=== PATIENT | female | born 1950 | race Caucasian/White ===

== ENCOUNTER 2020-09-10 11:55 | Inpatient (IN) | payer MEDICARE, OTHER ==
[~2020-09-10] VITALS: Ht 157.5 cm; Wt 47.6 kg
--- NOTE | 2020-09-10 12:10 | NUR ---
pt. admitted to .quiet initially,then roomate a little unfriendly,pt. taken to dining . nurse discharge planner aware.lrg. bandaid rt. elbow area,wd consult ordered.to take photos.mrsa smear done.
[2020-09-10] MEDS ORDERED: MAGNESIUM HYDROXIDE 30 ML UDC PO PRN (12:30)
[2020-09-10] MEDS ORDERED: MAG HYDROX/AL HYDROX/SIMETH 30 ML UDC PO PRN (12:30)
[2020-09-10] MEDS ORDERED: BLOOD SUGAR DIAGNOSTIC 1 EACH STRIP IN ONE (12:30)
[2020-09-10] MEDS ORDERED: ACETAMINOPHEN 325 MG TABLET PO PRN (12:30)
[2020-09-10] MEDS ORDERED: BUPR300T52 PO (13:54)
[2020-09-10] MEDS ORDERED: OLAN20TA3 PO (13:54)
[2020-09-10] MEDS ORDERED: ALEN70TA3 PO (13:54)
[2020-09-10] MEDS ORDERED: OMEP20TA20 PO (13:54)
[2020-09-10] MEDS ORDERED: NAPH15DR47 OP (13:54)
[2020-09-10] MEDS ORDERED: DONE5TAB7 PO (13:54)
[2020-09-10] MEDS ORDERED: SPIR25TA6 PO (13:54)
[2020-09-10] MEDS ORDERED: DIPH25CA83 PO (13:54)
[2020-09-10] MEDS ORDERED: BROM2.5T15 PO (13:54)
[2020-09-10] MEDS ORDERED: FAMO-131 PO (13:54)
[2020-09-10] MEDS ORDERED: LORA10TA68 PO (13:54)
[2020-09-10] MEDS ORDERED: OMEP20TA5 PO (13:54)
[2020-09-10] MEDS ORDERED: LACT10SO3 PO (13:54)
[2020-09-10 16:00] VITALS: BP 114/59
--- NOTE | 2020-09-10 16:30 | NUR ---
questioned town she is in and seems a little confused.
--- NOTE | 2020-09-10 18:30 | NUR ---
photos taken of discolorations on arms as well as abrasions on rt. arm.
[2020-09-10] MEDS ORDERED: diphenhydrAMINE HCL 25 MG CAPSULE PO PRN (19:00)
[2020-09-10] MEDS: BROMOCRIPTINE MESYLATE (2.5MG) 2.5 MG TABLET PO SCH (21:55)
[2020-09-11 08:00] VITALS: BP_SYST 120; BP_SYST 133; BP_DIAS 78; BP_DIAS 82
[2020-09-11] MEDS: LACTULOSE 10 G/15 ML UDC (PYXIS) PO SCH ×2 (08:47→09:00)
[2020-09-11] MEDS: SPIRONOLACTONE 25 MG TABLET PO SCH ×2 (08:48→09:00)
[2020-09-11] MEDS: LORATADINE 10 MG TABLET PO SCH ×2 (08:48→09:00)
[2020-09-11] MEDS: PANTOPRAZOLE 40 MG TABLET.DR PO SCH ×2 (08:48→09:00)
[2020-09-11] MEDS ORDERED: FAMOTIDINE (20 MG) 20 MG TABLET PO SCH (09:00)
--- NOTE | 2020-09-11 11:15 | NUR ---
PT. REFUSED FOR LABS. EXPLAINED ON THE IMPORTANCE AND STILL REFUSING.
--- NOTE | 2020-09-11 14:25 | NUR ---
Substance Abuse Intervention: MERISSA conducted a substance abuse intervention with the pt due to her lapse in alcohol recently in the past 5 days. Addendum: 09/12/20 at 1134 by MERISSA DOUGLAS WRONG PT.
--- NOTE | 2020-09-11 15:41 | NUR ---
Personal CarerAssembly Machine Offbearer: Promise ([phone]) from [facility] called the SW and stated that [facility], Dr. Moya ([phone]), would like a call from the . MERISSA stated that she would let the MD know. Addendum: 09/12/20 at 1136 by MERISSA DOUGLAS [phone]
[2020-09-11 16:00] VITALS: BP 142/88
--- NOTE | 2020-09-11 16:34 | NUR ---
Initial Discharge Plan: Pt currently resides at her apartment located at [address], [address], [place] [address]; [phone]. Per pt, she would like to return. SW will work with the pt and the MD regarding appropriate discharge planning. SW will form a safe and proper discharge.
[2020-09-11 19:52] VITALS: BP 125/69
[2020-09-11 20:20] LABS: ALBUMIN 2.9 g/dL (3.4-5.0); BILIRUBIN,TOTAL 0.5 mg/dL (0.2-1.0); POTASSIUM 3.7 mmol/L (3.5-5.1); TOTAL PROTEIN, SERUM 6.2 g/dL (6.4-8.2)
[2020-09-11 20:21] LABS: CHOLESTEROL 109 mg/dL (<200); HDL CHOLESTEROL 23 mg/dL (40-60); LDL 77 mg/dL (0-99); TRIGLYCERIDES 57 mg/dL (30-150)
[2020-09-11] MEDS: BROMOCRIPTINE MESYLATE (2.5MG) 2.5 MG TABLET PO SCH (21:16)
[2020-09-11] MEDS: OLANZAPINE 10 MG TABLET PO SCH (21:17)
[2020-09-12 08:00] VITALS: BP 99/64
[2020-09-12] MEDS: LACTULOSE 10 G/15 ML UDC (PYXIS) PO SCH (08:24)
[2020-09-12] MEDS: LORATADINE 10 MG TABLET PO SCH (08:24)
[2020-09-12] MEDS: SPIRONOLACTONE 25 MG TABLET PO SCH (08:24)
[2020-09-12] MEDS: PANTOPRAZOLE 40 MG TABLET.DR PO SCH (08:24)
[2020-09-12] MEDS: BUPROPION XL 150 MG TAB.ER.24 PO SCH (08:24)
--- NOTE | 2020-09-12 09:00 | NUR ---
RN NOTE- PT REFUSING MEDS OPPOSITIONAL TO CARE THOUGH DIRECTABLE IRRITABLE AT TIMES DELUSIONAL CLAIMING SOMEONE HAD HER ARRESTED AND PUT HERE. PO INTAKE GOOD PACES ANXIOUS
--- NOTE | 2020-09-12 09:17 | NUR ---
WOUND CARE CONSULT: PT SEEN FOR RT ARM ABRASIONS WHICH ARE DRY, PRESENT ON ADMISSION. NO WOUND CARE NEEDED AT THIS TIME. CURRENT JOSE SCORE IS 22. WILL SEE PRN.
--- NOTE | 2020-09-12 11:28 | NUR ---
Commercial Real Estate AssistantManager Biostatistics: MERISSA called Promise ([phone]) from [facility] and left a voicemail stating that the SW would like to discuss the pt.
--- NOTE | 2020-09-12 11:40 | NUR ---
Solid Die CutterArtillery Officer: Promise ([phone]) from [facility], pts medical case manager, called the SW and stated that the pt has been evicted from her apartment and is technically homeless. SW stated that the discharge recommendation looks like the pt will be discharged to a SNF. SW stated that she will keep medical case manager updated.
[2020-09-12 16:00] VITALS: BP 117/56
[2020-09-12 20:09] VITALS: BP 129/72
[2020-09-12 20:38] VITALS: BP 129/72
[2020-09-12] MEDS: BROMOCRIPTINE MESYLATE (2.5MG) 2.5 MG TABLET PO SCH (21:26)
[2020-09-12] MEDS: OLANZAPINE 10 MG TABLET PO SCH (21:31)
[2020-09-13 08:00] VITALS: BP 102/59
[2020-09-13] MEDS: PANTOPRAZOLE 40 MG TABLET.DR PO SCH (09:00)
[2020-09-13] MEDS: LACTULOSE 10 G/15 ML UDC (PYXIS) PO SCH (09:00)
[2020-09-13] MEDS: BUPROPION XL 150 MG TAB.ER.24 PO SCH (09:00)
[2020-09-13] MEDS: SPIRONOLACTONE 25 MG TABLET PO SCH (09:00)
[2020-09-13] MEDS: LORATADINE 10 MG TABLET PO SCH (09:00)
[2020-09-13 16:00] VITALS: BP 106/48
[2020-09-13 20:00] VITALS: BP 136/71
[2020-09-13 20:06] VITALS: BP 136/71
--- NOTE | 2020-09-13 20:28 | NUR ---
RN NOTE PATIENT SEEN BY DR. JEFFRIES AT THIS TIME. NO NEW ORDER RECEIVED.
[2020-09-13] MEDS: OLANZAPINE 10 MG TABLET PO SCH (21:06)
[2020-09-13] MEDS: BROMOCRIPTINE MESYLATE (2.5MG) 2.5 MG TABLET PO SCH (21:07)
[2020-09-14 08:00] VITALS: BP 108/66
[2020-09-14] MEDS: PANTOPRAZOLE 40 MG TABLET.DR PO SCH (08:45)
[2020-09-14] MEDS: LORATADINE 10 MG TABLET PO SCH (08:45)
[2020-09-14] MEDS: LACTULOSE 10 G/15 ML UDC (PYXIS) PO SCH ×2 (08:45→09:00)
[2020-09-14] MEDS: BUPROPION XL 150 MG TAB.ER.24 PO SCH (08:45)
[2020-09-14] MEDS: SPIRONOLACTONE 25 MG TABLET PO SCH (08:45)
--- NOTE | 2020-09-14 10:36 | NUR ---
RN NOTE PATIENT [id number], HYPERVERBAL WITH DISORGANIZED THOUGHTS. SHE CONSTANTLY STATES THAT "LAURA OR [facility] MONGE IS HERE AND I CAN'T FIND HIM," OR "BALTA THAT BITCH LEFT ME HERE AND WILL PAY." PATIENT PRESENTS WITH PARANOIA R/T MEDICATION AND BELIEVES "BALTA" IS THE REASON WHY SHE HAS TO TAKE MEDS. AFTER EDUCATION OF MED PURPOSE AND REORIENTATION SHE ACCEPTED ALL A.M MEDS EXCEPT LACTULOSE. DENIES SI/HI, VISUAL OR AUDITORY HALLUCINATIONS. ENCOURAGED TO KEEP DOOR OPEN FOR SAFETY BUT CLOSES IT EACH TIME LEFT OPEN. WILL CONTINUE TO MONITOR FOR SAFETY AND BEHAVIORS.
[2020-09-14 16:00] VITALS: BP 119/65
[2020-09-14 20:05] VITALS: BP 127/47
[2020-09-14] MEDS: BROMOCRIPTINE MESYLATE (2.5MG) 2.5 MG TABLET PO SCH (21:55)
[2020-09-14] MEDS: OLANZAPINE 10 MG TABLET PO SCH (21:55)
[2020-09-15 08:00] VITALS: BP 124/67
[2020-09-15] MEDS: PANTOPRAZOLE 40 MG TABLET.DR PO SCH (09:01)
[2020-09-15] MEDS: LORAZEPAM 0.5 MG TABLET PO PRN (09:01)
[2020-09-15] MEDS: BUPROPION XL 150 MG TAB.ER.24 PO SCH (09:01)
[2020-09-15] MEDS: LORATADINE 10 MG TABLET PO SCH (09:01)
[2020-09-15] MEDS: LACTULOSE 10 G/15 ML UDC (PYXIS) PO SCH (09:02)
[2020-09-15] MEDS: ALENDRONATE 70 MG TABLET PO SCH (09:06)
[2020-09-15] MEDS: SPIRONOLACTONE 25 MG TABLET PO SCH (09:06)
[2020-09-15 16:00] VITALS: BP 111/89
--- NOTE | 2020-09-15 18:00 | NUR ---
RN NOTES PATIENT REMAINS ISOLATIVE INSIDE HER ROOM THE WHOLE DAY. CALM. COMPLIANT WITH ALL MEDICATIONS. ALL NEEDS MET AT THIS TIME. NO OTHER SIGNIFICANT CHANGE IN CONDITION.
[2020-09-15 20:43] VITALS: BP 100/62
[2020-09-15] MEDS: BROMOCRIPTINE MESYLATE (2.5MG) 2.5 MG TABLET PO SCH (21:12)
[2020-09-15] MEDS: OLANZAPINE 10 MG TABLET PO SCH (21:14)
[2020-09-15] MEDS: TEMAZEPAM 7.5 MG CAPSULE PO PRN (22:38)
[2020-09-16] MEDS: LORAZEPAM 0.5 MG TABLET PO PRN ×2 (00:28→13:52)
--- NOTE | 2020-09-16 06:19 | NUR ---
PT PACING IN HER ROOM MOST OF THE NIGHT, SLEPT FOR ABOUT 4 HOURS. ATIVAN PRN ADMINISTERED FOR INCREASED ANXIETY WITH MILD EFFECT. ALL NEEDS MET AT THIS TIME, PATIENT IN NO APPARENT DISTRESS. DISORGANIZED, CONSTANTLY ENTERING INTO OTHER PATIENT'S ROOMS, REDIRECTED FREQUENTLY. WILL CONTINUE MONITORING CLOSELY.
[2020-09-16 08:00] VITALS: BP 116/57
[2020-09-16] MEDS: LACTULOSE 10 G/15 ML UDC (PYXIS) PO SCH (08:12)
[2020-09-16] MEDS: LORATADINE 10 MG TABLET PO SCH (08:12)
[2020-09-16] MEDS: BUPROPION XL 150 MG TAB.ER.24 PO SCH (08:13)
[2020-09-16] MEDS: PANTOPRAZOLE 40 MG TABLET.DR PO SCH (08:13)
[2020-09-16] MEDS: SPIRONOLACTONE 25 MG TABLET PO SCH (08:13)
--- NOTE | 2020-09-16 12:59 | NUR ---
SNF Referral: MERISSA faxed a SNF referral to [facility] with attn to Renan to the fax number: [phone].
[2020-09-16 16:00] VITALS: BP 109/44
--- NOTE | 2020-09-16 16:28 | NUR ---
SNF Contact: Renan ([phone]) from [facility] contacted the SW and stated that the pt was accepted to their facility.
--- NOTE | 2020-09-16 16:28 | NUR ---
Mold BuilderMarketing Assistant Retail Division: Promise ([phone]) from [facility] and stated that she wanted the SW to fax the pts medication list to [phone]. SW faxed the medications to the fax number provided.
[2020-09-16] MEDS: BROMOCRIPTINE MESYLATE (2.5MG) 2.5 MG TABLET PO SCH (21:31)
[2020-09-16] MEDS: OLANZAPINE 10 MG TABLET PO SCH (21:31)
[2020-09-16] MEDS: TEMAZEPAM 7.5 MG CAPSULE PO PRN (21:32)
[2020-09-17 03:57] VITALS: BP 134/64
[2020-09-17 04:39] VITALS: BP 134/64
--- NOTE | 2020-09-17 06:23 | NUR ---
PT RESTING AT THIS TIME, SLEPT FOR ABOUT 8 HOURS. ALL NEEDS MET AT THIS TIME, PATIENT IN NO APPARENT DISTRESS. WILL CONTINUE MONITORING CLOSELY.
[2020-09-17 08:00] VITALS: BP 120/58
[2020-09-17] MEDS: LORATADINE 10 MG TABLET PO SCH (08:30)
[2020-09-17] MEDS: BUPROPION XL 150 MG TAB.ER.24 PO SCH (08:31)
[2020-09-17] MEDS: PANTOPRAZOLE 40 MG TABLET.DR PO SCH (08:31)
[2020-09-17] MEDS: LACTULOSE 10 G/15 ML UDC (PYXIS) PO SCH (08:31)
[2020-09-17] MEDS: SPIRONOLACTONE 25 MG TABLET PO SCH (08:31)
[2020-09-17 16:00] VITALS: BP 103/73
--- NOTE | 2020-09-17 18:15 | NUR ---
RN NOTE PATIENT SLEPT INTERMITTENTLY THIS SHIFT. NO ACUTE DISTRESS. SHE CONTINUES WITH DISORGANIZED THOUGHTS, CONFUSION AND DELUSIONS. SHE DENIES SI/HI, AUDITORY OR VISUAL HALLUCINATIONS. MED COMPLIANT. EASILY AGITATED AT TIMES WHEN REDIRECTED. NO PHYSICAL NOR VERBAL AGGRESSION NOTED.
[2020-09-17 20:00] VITALS: BP 147/73
[2020-09-17] MEDS: TEMAZEPAM 7.5 MG CAPSULE PO PRN (21:11)
[2020-09-17] MEDS: BROMOCRIPTINE MESYLATE (2.5MG) 2.5 MG TABLET PO SCH (21:11)
[2020-09-17] MEDS: OLANZAPINE 10 MG TABLET PO SCH (21:11)
[2020-09-18 08:00] VITALS: BP 90/58
[2020-09-18] MEDS: LACTULOSE 10 G/15 ML UDC (PYXIS) PO SCH (09:00)
[2020-09-18] MEDS: SPIRONOLACTONE 25 MG TABLET PO SCH (09:02)
[2020-09-18] MEDS: LORATADINE 10 MG TABLET PO SCH (09:02)
[2020-09-18] MEDS: BUPROPION XL 150 MG TAB.ER.24 PO SCH (09:02)
[2020-09-18] MEDS: PANTOPRAZOLE 40 MG TABLET.DR PO SCH (09:02)
[2020-09-18 16:00] VITALS: BP 135/75
[2020-09-18 20:39] VITALS: BP 125/53
[2020-09-18] MEDS: BROMOCRIPTINE MESYLATE (2.5MG) 2.5 MG TABLET PO SCH (21:06)
[2020-09-18] MEDS: OLANZAPINE 10 MG TABLET PO SCH (21:07)
[2020-09-18] MEDS: TEMAZEPAM 7.5 MG CAPSULE PO PRN (23:51)
[2020-09-19] MEDS: LACTULOSE 10 G/15 ML UDC (PYXIS) PO SCH (08:11)
[2020-09-19] MEDS: PANTOPRAZOLE 40 MG TABLET.DR PO SCH (08:12)
[2020-09-19] MEDS: SPIRONOLACTONE 25 MG TABLET PO SCH (08:12)
[2020-09-19] MEDS: LORATADINE 10 MG TABLET PO SCH (08:12)
[2020-09-19] MEDS: BUPROPION XL 150 MG TAB.ER.24 PO SCH (08:12)
[2020-09-19 09:38] VITALS: BP 106/52
--- NOTE | 2020-09-19 13:09 | NUR ---
SNF Contact: SW contacted Renan ([phone]) from [facility] and informed him that the pt will be discharge on Tuesday.
--- NOTE | 2020-09-19 13:11 | NUR ---
Refrigerator GlazierHospitality Coordinator: MERISSA contacted Promise ([phone]) from [facility] and left her a voicemail stating that the pt will be discharged to [facility] on Tuesday.
[2020-09-19 16:13] VITALS: BP 151/70
[2020-09-19 20:12] VITALS: BP 152/77
[2020-09-19] MEDS: BROMOCRIPTINE MESYLATE (2.5MG) 2.5 MG TABLET PO SCH (21:09)
[2020-09-19] MEDS: OLANZAPINE 10 MG TABLET PO SCH (21:09)
[2020-09-19] MEDS: TEMAZEPAM 7.5 MG CAPSULE PO PRN (22:12)
--- NOTE | 2020-09-19 22:13 | NUR ---
RN NOTES: [id number] PT. C/O UNABLE TO SLEEP ,RESTORIL 7.5 MG PO PRN GIVEN PER PT. REQUEST,WILL CONTINUE TO MONITOR.
--- NOTE | 2020-09-20 06:30 | NUR ---
RN NOTES: PT. RESTING WELL IN HER ROOM, CALM COOPERTIVE AT THIS TIME , DENIES ANY PAIN/ DISCOMFORT AT THIS TIME, NO ACUTE DISTRESS NOTED , ENDORSE TO AM NURSE OR CONTINUITY WITH CARE.
[2020-09-20 08:30] VITALS: BP 117/59
[2020-09-20] MEDS: BUPROPION XL 150 MG TAB.ER.24 PO SCH (08:38)
[2020-09-20] MEDS: LORATADINE 10 MG TABLET PO SCH (08:39)
[2020-09-20] MEDS: PANTOPRAZOLE 40 MG TABLET.DR PO SCH (08:39)
[2020-09-20] MEDS: SPIRONOLACTONE 25 MG TABLET PO SCH (08:39)
[2020-09-20] MEDS: LACTULOSE 10 G/15 ML UDC (PYXIS) PO SCH (08:39)
[2020-09-20 16:00] VITALS: BP 147/75
[2020-09-20 20:03] VITALS: BP 110/72
[2020-09-20] MEDS: BROMOCRIPTINE MESYLATE (2.5MG) 2.5 MG TABLET PO SCH (22:14)
[2020-09-20] MEDS: OLANZAPINE 10 MG TABLET PO SCH (22:14)
--- NOTE | 2020-09-21 04:00 | NUR ---
RN NOTES PATIENT NOTED LAYING IN ROOMMATES EMPTY BED. PATIENT REORIENTATED. PATIENT IN CALM MOOD. PATIENT IN NO ACUTE DISTRESS. SAFETY MEASURES ARE IN PLACE, BED IS LOCKED AND PLACED IN THE LOW POSITION, SIDE RAILS UP X 2. WILL CONTINUE TO MONITOR.
[2020-09-21 08:00] VITALS: BP 156/92
[2020-09-21] MEDS: PANTOPRAZOLE 40 MG TABLET.DR PO SCH (08:45)
[2020-09-21] MEDS: SPIRONOLACTONE 25 MG TABLET PO SCH (08:45)
[2020-09-21] MEDS: LORATADINE 10 MG TABLET PO SCH (08:46)
[2020-09-21] MEDS: BUPROPION XL 150 MG TAB.ER.24 PO SCH (08:46)
[2020-09-21] MEDS: LACTULOSE 10 G/15 ML UDC (PYXIS) PO SCH (08:47)
[2020-09-21 16:00] VITALS: BP 125/55
[2020-09-21] MEDS: OLANZAPINE 10 MG TABLET PO SCH (21:09)
[2020-09-21] MEDS: BROMOCRIPTINE MESYLATE (2.5MG) 2.5 MG TABLET PO SCH (21:09)
[2020-09-21 21:28] VITALS: BP 163/79
[2020-09-22 08:00] VITALS: BP 114/67
[2020-09-22] MEDS: ALENDRONATE 70 MG TABLET PO SCH (08:23)
[2020-09-22] MEDS: BUPROPION XL 150 MG TAB.ER.24 PO SCH (08:58)
[2020-09-22] MEDS: PANTOPRAZOLE 40 MG TABLET.DR PO SCH (08:58)
[2020-09-22] MEDS: LACTULOSE 10 G/15 ML UDC (PYXIS) PO SCH (08:58)
[2020-09-22] MEDS: LORATADINE 10 MG TABLET PO SCH (08:58)
[2020-09-22] MEDS: SPIRONOLACTONE 25 MG TABLET PO SCH (08:59)
--- NOTE | 2020-09-22 09:00 | NUR ---
RN NOTE- ALERT ORIENTED PERSON ONLY CONFUSED WANDERS UNIT MED COMPLIANT NO BEHAVIORAL ISSUES
[2020-09-22 16:00] VITALS: BP 130/53
--- NOTE | 2020-09-22 16:25 | NUR ---
Individual Therapy: SW met with pt. bedside to conduct individual therapy regarding Positive Coping Mechanisms. However, pt. is irritable, agitated, restless and SW unable to engage pt. in meaningful conversation. Patient is not ready for therapy at this time. SW will continue attempt to provide individual therapy.
[2020-09-22 20:30] VITALS: BP 161/81
[2020-09-22] MEDS: OLANZAPINE 10 MG TABLET PO SCH (21:52)
[2020-09-22] MEDS: BROMOCRIPTINE MESYLATE (2.5MG) 2.5 MG TABLET PO SCH (21:52)
[2020-09-23] MEDS: TEMAZEPAM 7.5 MG CAPSULE PO PRN (00:04)
--- NOTE | 2020-09-23 00:05 | NUR ---
RN NOTES: INSOMNIA PT.C/O UNABLE TO SLEEP,RESTORIL 7.5 MG PO PRN GIVEN PER PT. REQUEST,WILL CONTINUE TO MONITOR.
[2020-09-23 08:00] VITALS: BP 123/61
--- NOTE | 2020-09-23 08:43 | NUR ---
Discharge plan: Pt will be discharged to [facility] (SNF) located at [address] [place] [address]; . Pt will be transported via [facility] at 12pm. Pts counseling case manager, Promise ([phone]), was informed and accepted the placement. Upon discharge, the pt appears to be in a euthymic mood and presented with a calm affect. Pt denies having any suicidal or homicidal ideation and stated that he does not have any auditory or visual hallucinations. Pt appears to be alert and oriented x4 (time, place, self and situation). Pt appears to be well groomed and appropriately dressed. Pt will be under the care of her psychiatrist, Dr. Guzman, located at [address] [place] [address]; and her aids counselor, Dr. Daniol Fraser, located at [address], [place] [address]; . Pt signed the Choice of Vendor form and the multidisciplinary exit care form was done, printed, signed, and given to the patient. Addendum: 09/23/20 at 0950 by MARIUSZ CRAVEN Discharge Note: Pt will be discharged to [facility] (SNF) located at [address] [place] [address]; . Pt will be transported via [facility] #[id number] at 12pm. Pts counseling case manager, Promise ([phone]), was informed and accepted the placement. Upon discharge, the pt appears to be in a euthymic mood and presented with a calm affect. Pt denies having any suicidal or homicidal ideation and stated that he does not have any auditory or visual hallucinations. Pt appears to be alert and oriented x4 (time, place, self and situation). Pt appears to be well groomed and appropriately dressed. Pt will be under the care of her psychiatrist, Dr. Guzman, [place] [address] [place] [address]; and her aids counselor, Dr. Danilo Fraser, located at [address], [place] [address]; . Pt signed the Choice of Vendor form and the multidisciplinary exit care form was done, printed, signed, and given to the patient.
[2020-09-23] MEDS: LACTULOSE 10 G/15 ML UDC (PYXIS) PO SCH ×2 (09:00→09:06)
--- NOTE | 2020-09-23 09:00 | NUR ---
received pt. this am alert and oriented x1-2.skin warm and dry. vs stable.no acute distress.
[2020-09-23] MEDS: LORATADINE 10 MG TABLET PO SCH (09:05)
[2020-09-23] MEDS: PANTOPRAZOLE 40 MG TABLET.DR PO SCH (09:06)
[2020-09-23] MEDS: SPIRONOLACTONE 25 MG TABLET PO SCH (09:06)
[2020-09-23] MEDS: BUPROPION XL 150 MG TAB.ER.24 PO SCH (09:07)
--- NOTE | 2020-09-23 12:10 | NUR ---
received dc orders.plans for dc today.med compliant.photos taken.pt cooperative,all papers signed including belonging sheet.denies suicidal,homicidal ideation.report called to facility and report to drivers.taken via ambulance to facility.
== END 2020-09-23 12:10 | DRG 885 ==
LOC: GPS 11:55
PROVIDERS: ADMIT Psychiatry & Neurology Psychiatry; ATTEND Internal Medicine
DX: F25.9 Schizoaffective disorder, unspecified (principal); F29 Unspecified psychosis not due to a substance or known physiological condition; F32.9 Major depressive disorder, single episode, unspecified; F41.9 Anxiety disorder, unspecified; F03.90 Unspecified dementia, unspecified severity, without behavioral disturbance, psychotic disturbance, mood disturbance, and anxiety; M81.0 Age-related osteoporosis without current pathological fracture; K21.9 Gastro-esophageal reflux disease without esophagitis; Z73.6 Limitation of activities due to disability; M62.81 Muscle weakness (generalized); Z20.822 Contact with and (suspected) exposure to COVID-19
CPT/HCPCS: 36415; 80053-TC; 80061-TC; 82962-TC; 87081-TC; Q0163

== ENCOUNTER 2021-08-27 19:55 | Inpatient (IN) | payer MEDICARE, OTHER ==
[~2021-08-27] VITALS: Ht 154.9 cm; Wt 49.9 kg
[~2021-08-27 19:55] MED LIST: ALEN70TA3 PO; BROM2.5T15 PO; DIPH25CA83 PO; FAMO-131 PO; LACT10SO3 PO; LORA10TA68 PO; NAPH15DR47 OP; OMEP20TA20 PO; OMEP20TA5 PO; SPIR25TA6 PO
--- NOTE | 2021-08-27 20:20 | NUR ---
PT LYNDA FROM [facility] FOR ABNORMAL CHEST XRAY AND CT. PT A/O X1, CONNECTED TO MONITOR.
--- NOTE | 2021-08-27 20:21 | NUR ---
20G IV LINE ESTABLISHED AT [facility]. PATENT AND INCTACT. BLOOD AND CULTURES DRAWN AND SENT TO LAB.
--- NOTE | 2021-08-27 20:21 | NUR ---
EMT AT BEDSIDE FOR EKG
--- NOTE | 2021-08-27 20:36 | NUR ---
PT OUT TO CT.
[2021-08-27 20:42] LABS: BASOPHILS # (AUTO) 0.1 K/uL (0.0-0.2); BASOPHILS % (AUTO) 0.8 % (0.0-2.0); EOSINOPHILS % (AUTO) 2.6 % (0.0-6.0); HEMATOCRIT 38 % (33-45); HEMOGLOBIN 13.2 g/dL (11.5-14.8); LYMPHOCYTES # (AUTO) 1.6 K/uL (0.8-4.8); LYMPHOCYTES % (AUTO) 15.2 % (20.0-44.0); MEAN CORPUSCULAR HGB CONC 34 g/dl (31.0-36.0); MEAN CORPUSCULAR VOLUME 95 fL (82-100); MONOCYTES # (AUTO) 0.8 K/uL (0.1-1.30); MONOCYTES % (AUTO) 7.4 % (2.0-12.0); NEUTROPHILS # (AUTO) 7.7 K/uL (1.8-8.9); PLATELET COUNT (AUTO) 167 K/uL (150-450); RED BLOOD CELL COUNT(AUTO) 4.07 MIL/uL (4.0-5.2); WHITE BLOOD COUNT (AUTO) 10.5 K/uL (4.3-11.0)
[2021-08-27 20:48] LABS: BILIRUBIN,DIRECT 0.2 mg/dL (0.0-0.2); BILIRUBIN,TOTAL 0.6 mg/dL (0.2-1.0); CALCIUM, SERUM 8.6 mg/dL (8.5-10.1); CREATININE 1.3 mg/dL (0.6-1.3); POTASSIUM 3.9 mmol/L (3.5-5.1); TOTAL PROTEIN, SERUM 7.7 g/dL (6.4-8.2)
--- NOTE | 2021-08-27 20:55 | NUR ---
COVID ANTIGEN COLLECTED AND SENT TO LAB.
--- NOTE | 2021-08-27 21:53 | NUR ---
PT CURRENTLY WAITING FOR HOSPITAL BED
[2021-08-27] MEDS: BROMOCRIPTINE MESYLATE (2.5MG) 2.5 MG TABLET PO SCH (22:00)
[2021-08-27] MEDS ORDERED: MAG HYDROX/AL HYDROX/SIMETH 30 ML UDC PO PRN (22:00)
[2021-08-27] MEDS ORDERED: ONDANSETRON HCL/PF 4 MG/2 ML VIAL IVP PRN (22:00)
[2021-08-27] MEDS ORDERED: MAGNESIUM HYDROXIDE 30 ML UDC PO PRN (22:00)
[2021-08-27] MEDS ORDERED: ACETAMINOPHEN 325 MG TABLET PO PRN (22:00)
[2021-08-27] MEDS ORDERED: Z GUARD REMEDY 4 OZ OINT TP PRN (22:00)
--- NOTE | 2021-08-27 22:18 | NUR ---
REPORT GIVEN TO MOSES
[2021-08-27 22:50] VITALS: BP 132/68
--- NOTE | 2021-08-27 22:50 | NUR ---
PATIENT ARRIVED ON THE FLOOR FROM ER, AWAKE, A/O X2, CONFUSED, CONSTANTLY TALKING TO HERSELF. NO S/S OF DISTRESS NOTED. NO COMPLAIN OF PAIN. CALL LIGHT WITHIN REACH, INSTRUCTED. BED ALARM ON. BED IN LOWEST AND LOCKED POSITION. HOB ELEVATED.
[2021-08-27] MEDS: IV NS 0.9% 1,000 ML IV PRN (23:18)
--- NOTE | 2021-08-28 00:53 | NUR ---
parlodel med not available per charge nurse Altagracia.
[2021-08-28 06:50] LABS: BASOPHILS # (AUTO) 0.1 K/uL (0.0-0.2); BASOPHILS % (AUTO) 0.8 % (0.0-2.0); EOSINOPHILS % (AUTO) 4.8 % (0.0-6.0); HEMATOCRIT 35 % (33-45); LYMPHOCYTES # (AUTO) 1.3 K/uL (0.8-4.8); LYMPHOCYTES % (AUTO) 16.8 % (20.0-44.0); MEAN CORPUSCULAR HGB CONC 35 g/dl (31.0-36.0); MEAN CORPUSCULAR VOLUME 95 fL (82-100); MONOCYTES # (AUTO) 0.7 K/uL (0.1-1.30); MONOCYTES % (AUTO) 8.6 % (2.0-12.0); NEUTROPHILS # (AUTO) 5.4 K/uL (1.8-8.9); PLATELET COUNT (AUTO) 144 K/uL (150-450); RED BLOOD CELL COUNT(AUTO) 3.67 MIL/uL (4.0-5.2); WHITE BLOOD COUNT (AUTO) 7.8 K/uL (4.3-11.0)
--- NOTE | 2021-08-28 07:35 | NUR ---
MS OPENING NOTES PATIENT IN BED AWAKE, A/O X2, CONFUSED WITH H/O DEMENTIA. EQUAL CHEST EXPANSION DURING RESPIRATIONS WITH NO S/SX OF RESPIRATORY DISTRESS NOTED. NO COMPLAINT OF PAIN AT THIS TIME. R AC G#20 WITH NS RUNNING @ 75ML/HR. SAFETY MEASURES IN PLACE: CALL LIGHT WITHIN REACH BED ALARM ON. BED IN LOWEST AND LOCKED POSITION. HOB ELEVATED. WILL CONTINUE TO MONITOR PATIENT
[2021-08-28 07:42] LABS: CALCIUM, SERUM 8.1 mg/dL (8.5-10.1); CREATININE 1.2 mg/dL (0.6-1.3); MAGNESIUM 2.2 mg/dL (1.8-2.4); PHOSPHORUS 4.1 mg/dL (2.5-4.9); POTASSIUM 4.4 mmol/L (3.5-5.1)
[2021-08-28] MEDS: FAMOTIDINE (20 MG) 20 MG TABLET PO SCH (09:55)
[2021-08-28] MEDS: NAPHAZOLINE HCL/PHENIR MAL 15 ML BOTTLE EACHEYE SCH ×2 (09:55→17:41)
[2021-08-28] MEDS: LACTULOSE 10 G/15 ML UDC (PYXIS) PO SCH (09:55)
[2021-08-28] MEDS: LORATADINE 10 MG TABLET PO SCH (09:55)
[2021-08-28] MEDS: SPIRONOLACTONE 25 MG TABLET PO SCH (09:55)
--- NOTE | 2021-08-28 18:50 | NUR ---
MS CLOSING NOTES PATIENT AWAKE, NEAR THE NURSING STATION, A/O X1, HIGHLY FORGETFUL. EQUAL NO S/SX OF RESPIRATORY DISTRESS NOTED OR COMPLAINTS OF PAIN AT THIS TIME. R AC G#20 REMOVED, NEW IC ACCESS R FA G#18 INTACT AND PATENT. PATIENT NEEDS NEEDS FREQUENT REORIENTATION AND EDUCATION FOR SAFETY. CHARGE NURSE MADE AWARE. PATIENT IS TO BE NPO EXCEPT MEDS AFTER MIDNIGHT FOR CT PROCEDURE TOMORROW AM. TRIED CALLING DAPHNEY FLASHER ([employer] WORKER [facility]) FOR CONSENT BUT NO ANSWER. LEFT A VOICEMAIL. SAFETY MEASURES IN PLACE: CALL LIGHT WITHIN REACH BED ALARM ON. BED IN LOWEST AND LOCKED POSITION. HOB ELEVATED. WILL ENDORSE TO DATABASE ANALYST NURSE FOR KELLY
--- NOTE | 2021-08-28 19:15 | NUR ---
MS RN OPENING NOTES: RECEIVED PATIENT RESTING COMFORTABLY IN BED, AWAKE, A/O X2, CONFUSED. NO S/S OF DISTRESS NOTED. NO COMPLAIN OF PAIN. CALL LIGHT WITHIN REACH. BED IN LOWEST AND LOCKED POSITION. WITH 1:1 SITTER AT THE BEDSIDE FOR ELOPEMENT RISK. NPO POST MN EXCEPT MEDS, SITTER AWARE, AND PATIENT AWARE.
--- NOTE | 2021-08-28 20:41 | NUR ---
NO 1:1 SITTER AT THIS MOMENT PER CHARGE NURSE PADILLA.
[2021-08-28] MEDS: BROMOCRIPTINE MESYLATE (2.5MG) 2.5 MG TABLET PO SCH (21:49)
[2021-08-28 22:59] VITALS: BP 122/70
[2021-08-29] MEDS: IV NS 0.9% 1,000 ML IV PRN (03:21)
[2021-08-29] MEDS: ALENDRONATE 70 MG TABLET PO SCH (05:28)
[2021-08-29 06:21] LABS: BASOPHILS # (AUTO) 0.1 K/uL (0.0-0.2); BASOPHILS % (AUTO) 1.1 % (0.0-2.0); HEMATOCRIT 34 % (33-45); HEMOGLOBIN 11.4 g/dL (11.5-14.8); LYMPHOCYTES # (AUTO) 1.4 K/uL (0.8-4.8); LYMPHOCYTES % (AUTO) 18.8 % (20.0-44.0); MEAN CORPUSCULAR HGB CONC 34 g/dl (31.0-36.0); MEAN CORPUSCULAR VOLUME 96 fL (82-100); MONOCYTES # (AUTO) 0.6 K/uL (0.1-1.30); MONOCYTES % (AUTO) 8.7 % (2.0-12.0); NEUTROPHILS # (AUTO) 4.8 K/uL (1.8-8.9); NEUTROPHILS % (AUTO) 66.4 % (43.0-81.0); PLATELET COUNT (AUTO) 145 K/uL (150-450); RED BLOOD CELL COUNT(AUTO) 3.49 MIL/uL (4.0-5.2); WHITE BLOOD COUNT (AUTO) 7.2 K/uL (4.3-11.0)
[2021-08-29 06:45] LABS: ALBUMIN 2.5 g/dL (3.4-5.0); BILIRUBIN,TOTAL 0.4 mg/dL (0.2-1.0); CALCIUM, SERUM 7.8 mg/dL (8.5-10.1); CREATININE 1.2 mg/dL (0.6-1.3); MAGNESIUM 2.3 mg/dL (1.8-2.4); PHOSPHORUS 3.8 mg/dL (2.5-4.9); POTASSIUM 4.2 mmol/L (3.5-5.1); TOTAL PROTEIN, SERUM 6.4 g/dL (6.4-8.2)
--- NOTE | 2021-08-29 07:35 | NUR ---
MS OPENING NOTES PATIENT AWAKE IN BED, A/O X1, HIGHLY FORGETFUL. EQUAL CHEST EXPANSION ON RA DURING INSPIRATION AND EXPIRATION WITH NO S/SX OF RESPIRATORY DISTRESS NOTED. NO COMPLAINTS OF PAIN VERBALIZED AT THIS TIME. IV ACCESS R FA G#18 INTACT AND PATENT. PATIENT NEEDS FREQUENT REORIENTATION. UNABLE TO RESPOND APPROPRIATELY TO QUESTIONS. SAFETY MEASURES IN PLACE: CALL LIGHT WITHIN REACH BED ALARM ON. BED IN LOWEST AND LOCKED POSITION. HOB ELEVATED. WILL CONTINUE THE PLAN OF CARE
[2021-08-29 08:00] VITALS: BP 104/50
[2021-08-29 09:07] LABS: CANCER AG, 15-3 23.7 U/mL (0.0-25.0)
[2021-08-29] MEDS: FAMOTIDINE (20 MG) 20 MG TABLET PO SCH (09:19)
[2021-08-29] MEDS: LACTULOSE 10 G/15 ML UDC (PYXIS) PO SCH (09:19)
[2021-08-29] MEDS: LORATADINE 10 MG TABLET PO SCH (09:19)
[2021-08-29] MEDS: SPIRONOLACTONE 25 MG TABLET PO SCH (09:19)
[2021-08-29] MEDS: NAPHAZOLINE HCL/PHENIR MAL 15 ML BOTTLE EACHEYE SCH ×2 (09:19→17:00)
--- NOTE | 2021-08-29 10:00 | NUR ---
RN NOTES PATIENT HAS ORDER FOR CT OF CHEST, ABD, AND PELVIS WITH CONTRAST. PATIENT HAS H/O DEMENTIA AND CANNOT PROVIDE CONSENT. RESPONSIBLE GREEN PARTY (KIERA ABDI) HAS BEEN CALLED 3X FOR CONSENT BUT UNABLE TO REACH. ATTENDING DOCTOR, DR BEAUCHAMP WAS NOTIFIED AND HAS PROVIDED CONSENT FOR THE PATIENT TO HAVE THIS PROCEDURE PERFORMED.
--- NOTE | 2021-08-29 11:00 | NUR ---
RN NOTES PATIENT WAS TRANSFERRED OFF UNIT FOR CT PROCEDURE. TRANSPORTED VIA WHEELCHAIR ACCOMPANIED BY 2 TECHS.
[2021-08-29] MEDS ORDERED: IOHEXOL-300 100 ML VIAL IV ONE (11:10)
[2021-08-29] MEDS ORDERED: IV NS 0.9% 250 ML IV ONE (11:11)
--- NOTE | 2021-08-29 11:30 | NUR ---
RN NOTES CT COMPLETE. NO COMPLAINTS OR COMPLICATIONS NOTED. PATIENT IS SAFELY BACK IN ROOM.
--- NOTE | 2021-08-29 12:45 | NUR ---
RN NOTES PATIENT'S 2 SISTERS CAME TO HOSPITAL TO VISIT. PATIENT BECAME VERY UPSET AFTER SISTERS LEFT. PATIENT IS SITTING NEAR NURSES STATION FOR COMFORT AND CLOSE OBSERVATION. WILL CONTINUE TO MONITOR
[2021-08-29 16:00] VITALS: BP 119/67
[2021-08-29 18:32] LABS: IRON, SERUM 70 ug/dl (50-175)
[2021-08-29 18:44] LABS: FERRITIN 222 ng/mL (8-388)
[2021-08-29 18:45] LABS: TOTAL IRON BINDING CAPACITY 245 ug/dl (250-450)
--- NOTE | 2021-08-29 18:45 | NUR ---
MS CLOSING NOTES PATIENT AWAKE IN ROOM, HIGHLY FORGETFUL. NO S/SX OF RESPIRATORY DISTRESS NOTED. NO COMPLAINTS OF PAIN VERBALIZED AT THIS TIME. IV ACCESS R FA G#18 INTACT AND PATENT. PATIENT NEEDS FREQUENT REORIENTATION. UNABLE TO RESPOND APPROPRIATELY TO QUESTIONS BUT COOPERATIVE DURING CARE. ALL NEEDS MET DURING SHIFT. CT PERFORMED TODAY. SAFETY MEASURES IN PLACE: CALL LIGHT WITHIN REACH BED ALARM ON. BED IN LOWEST AND LOCKED POSITION. HOB ELEVATED. WILL ENDORSE TO THE ORCHARD PRUNER NURSE FOR KELLY
--- NOTE | 2021-08-29 19:30 | NUR ---
MS RN OPENING NOTES: RECEIVED PATIENT IN THE HALLWAY TALKING TO THE STAFFS, WALKING AROUND THE HALLWAY, CONFUSED. NO S/S OF DISTRESS NOTED. NO COMPLAIN OF PAIN. RE-ORIENTED THE PATIENT. PATIENT REQUIRES FREQUENT RE-ORIENTATIONS.
[2021-08-29 20:00] VITALS: BP 115/56
[2021-08-29] MEDS: BROMOCRIPTINE MESYLATE (2.5MG) 2.5 MG TABLET PO SCH (21:18)
[2021-08-30 06:41] LABS: BASOPHILS # (AUTO) 0.1 K/uL (0.0-0.2); BASOPHILS % (AUTO) 0.8 % (0.0-2.0); EOSINOPHILS % (AUTO) 4.6 % (0.0-6.0); HEMATOCRIT 34 % (33-45); HEMOGLOBIN 11.5 g/dL (11.5-14.8); LYMPHOCYTES # (AUTO) 1.4 K/uL (0.8-4.8); MEAN CORPUSCULAR HGB CONC 34 g/dl (31.0-36.0); MEAN CORPUSCULAR VOLUME 95 fL (82-100); MONOCYTES # (AUTO) 0.6 K/uL (0.1-1.30); MONOCYTES % (AUTO) 8.1 % (2.0-12.0); NEUTROPHILS # (AUTO) 4.8 K/uL (1.8-8.9); NEUTROPHILS % (AUTO) 67.5 % (43.0-81.0); PLATELET COUNT (AUTO) 153 K/uL (150-450); RED BLOOD CELL COUNT(AUTO) 3.55 MIL/uL (4.0-5.2); WHITE BLOOD COUNT (AUTO) 7.2 K/uL (4.3-11.0)
--- NOTE | 2021-08-30 07:20 | NUR ---
MS RN OPENING NOTES RECEIVED PATIENT AWAKE, WALKING IN ROOM. A/O X2 WITH CONFUSION. NO SIGNS OF ACUTE DISTRESS NOTED. ON ROOM AIR TOLERATING WELL. NO SOB NOTED. NO C/O PAIN OR DISCOMFORT. WITH IV ACCESS ON RFA #18G INTACT. SAFETY MEASURES IN PLACE. BED LOCKED AND IN LOWEST POSITION, SR UP X2, CALL LIGHT PLACED WITHIN EASY REACH. WILL CONTINUE TO MONITOR.
[2021-08-30 07:36] LABS: ALBUMIN 2.6 g/dL (3.4-5.0); BILIRUBIN,TOTAL 0.4 mg/dL (0.2-1.0); CREATININE 1.1 mg/dL (0.6-1.3); MAGNESIUM 2.2 mg/dL (1.8-2.4); PHOSPHORUS 3.5 mg/dL (2.5-4.9); POTASSIUM 4.3 mmol/L (3.5-5.1); TOTAL PROTEIN, SERUM 6.7 g/dL (6.4-8.2)
[2021-08-30] MEDS: FAMOTIDINE (20 MG) 20 MG TABLET PO SCH (08:18)
[2021-08-30] MEDS: LACTULOSE 10 G/15 ML UDC (PYXIS) PO SCH (08:18)
[2021-08-30] MEDS: SPIRONOLACTONE 25 MG TABLET PO SCH (08:18)
[2021-08-30] MEDS: LORATADINE 10 MG TABLET PO SCH (08:18)
[2021-08-30] MEDS: NAPHAZOLINE HCL/PHENIR MAL 15 ML BOTTLE EACHEYE SCH ×2 (08:20→16:10)
[2021-08-30 08:48] VITALS: BP 116/58
[2021-08-30 15:59] VITALS: BP 116/60
--- NOTE | 2021-08-30 17:45 | NUR ---
RN NOTES LEFT MESSAGE TO KIERA GLUING CREW LEADER REGARDING OBTAINING A CONSENT FOR CT GUIDED BIOPSY OF LUNG MASS. NO ANSWER. WILL ENDORSE ACCORDINGLY.
--- NOTE | 2021-08-30 18:56 | NUR ---
MS RN CLOSING NOTES PATIENT AWAKE, IN BED. A/O X2 WITH CONFUSION. NOTED TALKING TO SELF. NO SIGNS OF ACUTE DISTRESS NOTED. ON ROOM AIR TOLERATING WELL. NO SOB NOTED. NO C/O PAIN OR DISCOMFORT. NO IV ACCESS AT THIS TIME. PATIENT REFUSED REINSERTION AT THIS TIME, MD AWARE. SAFETY MEASURES IN PLACE. BED LOCKED AND IN LOWEST POSITION, SR UP X2, CALL LIGHT PLACED WITHIN EASY REACH. WILL ENDORSE TO NEXT SHIFT.
--- NOTE | 2021-08-30 19:35 | NUR ---
MS RN OPENING NOTES PATIENT AWAKE, IN BED. A/O X2 WITH CONFUSION. NOTED TALKING TO SELF. NO SIGNS OF ACUTE DISTRESS NOTED. ON ROOM AIR TOLERATING WELL. NO SOB NOTED. NO C/O PAIN OR DISCOMFORT. NO IV ACCESS AT THIS TIME. PATIENT REFUSED REINSERTION AT THIS TIME, MD AWARE. SAFETY MEASURES IN PLACE. BED LOCKED AND IN LOWEST POSITION, SR UP X2, CALL LIGHT PLACED WITHIN EASY REACH. WILL CONTINUE TO MONITOR.
[2021-08-30 20:00] VITALS: BP 129/70
[2021-08-30] MEDS: RIVASTIGMINE TARTRATE 1.5 MG CAPSULE PO SCH (22:30)
[2021-08-30] MEDS: BROMOCRIPTINE MESYLATE (2.5MG) 2.5 MG TABLET PO SCH (22:30)
[2021-08-30] MEDS: risperiDONE 0.25 MG TABLET PO SCH (22:30)
--- NOTE | 2021-08-30 23:06 | NUR ---
MS RN NOTES PT SEEN BY PSYCHIATRIST DR JEFFRIES WITH NEW ORDERS. CARRIED OUT . WILL CONTINUE TO MONITOR
--- NOTE | 2021-08-31 06:33 | NUR ---
MS RN CLOSING NOTES PATIENT AWAKE, IN BED. A/O X2 WITH CONFUSION. NOTED TALKING TO SELF. NO SIGNS OF ACUTE DISTRESS NOTED. ON ROOM AIR TOLERATING WELL. NO SOB NOTED. NO C/O PAIN OR DISCOMFORT. NO IV ACCESS AT THIS TIME. PATIENT REFUSED REINSERTION AT THIS TIME. PT KEEPS PULLING OUT IV. SAFETY MEASURES IN PLACE. BED LOCKED AND IN LOWEST POSITION, SR UP X2, CALL LIGHT PLACED WITHIN EASY REACH. PT TO HAVE CT GUIDED LUNG BIOPSY CONSENT WAS NOT ABLE TO BE OBTAINED. UNABLE TO REACH RESPONSIBLE GREEN PARTY. DR MIDDLETON ALSO TRIED CONTACT RESPONSIBLE PART YESTERDAY NIGHT BUT WAS UNABLE TO GET CALL BACK. PT NPO SINCE MIDNIGHT. WILL ENDORSE CARE TO DAY SHIFT NURSE.
--- NOTE | 2021-08-31 07:15 | NUR ---
MS RN OPENING NOTES PATIENT AWAKE, IN BED. A/O X2 WITH CONFUSION. NOTED TALKING TO SELF. NO SIGNS OF ACUTE DISTRESS NOTED. ON ROOM AIR TOLERATING WELL. NO SOB NOTED. NO C/O PAIN OR DISCOMFORT. NO IV ACCESS AT THIS TIME. PATIENT REFUSED REINSERTION. NPO SINCE MIDNIGHT. SAFETY MEASURES IN PLACE. BED LOCKED AND IN LOWEST POSITION, SR UP X2, CALL LIGHT PLACED WITHIN EASY REACH. WILL CONTINUE TO MONITOR.
[2021-08-31 07:19] LABS: BASOPHILS # (AUTO) 0.1 K/uL (0.0-0.2); BASOPHILS % (AUTO) 0.8 % (0.0-2.0); EOSINOPHILS % (AUTO) 3.7 % (0.0-6.0); HEMATOCRIT 38 % (33-45); HEMOGLOBIN 12.5 g/dL (11.5-14.8); LYMPHOCYTES # (AUTO) 1.2 K/uL (0.8-4.8); LYMPHOCYTES % (AUTO) 13.8 % (20.0-44.0); MEAN CORPUSCULAR HGB CONC 33 g/dl (31.0-36.0); MEAN CORPUSCULAR VOLUME 96 fL (82-100); MONOCYTES # (AUTO) 0.6 K/uL (0.1-1.30); MONOCYTES % (AUTO) 6.8 % (2.0-12.0); NEUTROPHILS # (AUTO) 6.7 K/uL (1.8-8.9); NEUTROPHILS % (AUTO) 74.9 % (43.0-81.0); PLATELET COUNT (AUTO) 183 K/uL (150-450); RED BLOOD CELL COUNT(AUTO) 3.89 MIL/uL (4.0-5.2)
[2021-08-31 07:33] LABS: CREATININE 1.1 mg/dL (0.6-1.3); POTASSIUM 3.6 mmol/L (3.5-5.1)
[2021-08-31] MEDS: FAMOTIDINE (20 MG) 20 MG TABLET PO SCH (08:51)
[2021-08-31] MEDS: LORATADINE 10 MG TABLET PO SCH (08:51)
[2021-08-31] MEDS: LACTULOSE 10 G/15 ML UDC (PYXIS) PO SCH (08:52)
[2021-08-31] MEDS: NAPHAZOLINE HCL/PHENIR MAL 15 ML BOTTLE EACHEYE SCH ×2 (08:53→17:15)
[2021-08-31] MEDS: SPIRONOLACTONE 25 MG TABLET PO SCH (09:00)
[2021-08-31 09:07] LABS: IMMUNOGLOBULIN A, SERUM 386 mg/dL (64-422); IMMUNOGLOBULIN G, SERUM 1396 mg/dL (586-1602); IMMUNOGLOBULIN M, SERUM 186 mg/dL (26-217)
[2021-08-31 09:25] VITALS: BP 109/69
[2021-08-31] MEDS: risperiDONE 0.25 MG TABLET PO SCH ×2 (10:17→21:46)
[2021-08-31] MEDS: RIVASTIGMINE TARTRATE 1.5 MG CAPSULE PO SCH ×2 (10:17→21:46)
[2021-08-31 12:57] LABS: CALCIUM, SERUM 8.2 mg/dL (8.5-10.1)
[2021-08-31 16:33] VITALS: BP 138/60
--- NOTE | 2021-08-31 18:57 | NUR ---
MS RN CLOSING NOTES PATIENT AWAKE, IN BED. A/O X2 WITH CONFUSION. NOTED TALKING TO SELF. NO SIGNS OF ACUTE DISTRESS NOTED. REMAINS ON ROOM AIR TOLERATING WELL. NO SOB NOTED. NO C/O PAIN OR DISCOMFORT. STILL NO IV ACCESS AT THIS TIME. PATIENT REFUSED REINSERTION. SAFETY MEASURES IN PLACE. BED LOCKED AND IN LOWEST POSITION, SR UP X2, CALL LIGHT PLACED WITHIN EASY REACH. WILL ENDORSE TO NEXT SHIFT.
--- NOTE | 2021-08-31 19:23 | NUR ---
MS RN OPENING NOTES PATIENT AWAKE, IN BED. A/O X2 WITH CONFUSION. NOTED TALKING TO SELF. NO SIGNS OF ACUTE DISTRESS NOTED. REMAINS ON ROOM AIR TOLERATING WELL. NO SOB NOTED. NO C/O PAIN OR DISCOMFORT. STILL NO IV ACCESS AT THIS TIME. PATIENT REFUSED REINSERTION. SAFETY MEASURES IN PLACE. BED LOCKED AND IN LOWEST POSITION, SR UP X2, CALL LIGHT PLACED WITHIN EASY REACH. WILL CONTINUE TO MONITOR.
[2021-08-31 20:00] VITALS: BP 126/74
[2021-08-31] MEDS: BROMOCRIPTINE MESYLATE (2.5MG) 2.5 MG TABLET PO SCH (21:46)
--- NOTE | 2021-09-01 06:41 | NUR ---
MS RN CLOSING NOTES PATIENT AWAKE, IN BED. A/O X2 WITH CONFUSION. NOTED TALKING TO SELF. NO SIGNS OF ACUTE DISTRESS NOTED. REMAINS ON ROOM AIR TOLERATING WELL. NO SOB NOTED. NO C/O PAIN OR DISCOMFORT. STILL NO IV ACCESS AT THIS TIME. PATIENT REFUSED REINSERTION. SAFETY MEASURES IN PLACE. BED LOCKED AND IN LOWEST POSITION, SR UP X2, CALL LIGHT PLACED WITHIN EASY REACH. WILL ENDORSE CARE TO DAY SHIFT NURSE.
--- NOTE | 2021-09-01 07:30 | NUR ---
MS RN OPENING NOTES RECEIVED PATIENT AWAKE, IN BED. A/O X 1 WITH CONFUSION AND BEING FORGETFUL. NO SIGNS OF ACUTE DISTRESS NOTED. REMAINS ON ROOM AIR TOLERATING WELL. NO SOB NOTED. NO C/O PAIN OR DISCOMFORT. NO IV ACCESS . PATIENT REFUSED REINSERTION. SAFETY MEASURES IN PLACE. BED LOCKED AND IN LOWEST POSITION, SR UP X2, CALL LIGHT AND TABLE PLACED WITHIN EASY REACH. WILL CONTINUE TO MONITOR.
[2021-09-01 08:06] LABS: *ANA ANTI-CENTROMERE B AB <0.2 AI (0.0-0.9); *ANA ANTI-DNA(DS) AB, QN <1 IU/mL (0-9); *ANA ANTI-JO-1 <0.2 AI (0.0-0.9); *ANA ANTICHROMATIN ANTIBODY <0.2 AI (0.0-0.9); *ANA RNP ANTIBODIES 0.3 AI (0.0-0.9); *ANA SJOGREN'S ANTI-SS-A <0.2 AI (0.0-0.9); *ANA SJOGREN'S ANTI-SS-B <0.2 AI (0.0-0.9); *ANAANTI-SCLERODERMA-70 AB <0.2 AI (0.0-0.9); *ANASMITH AB <0.2 AI (0.0-0.9)
[2021-09-01 09:08] LABS: *SPE A/G RATIO 0.8 (0.7-1.7); *SPE ALPHA-1-GLOBULIN 0.2 g/dL (0.0-0.4); *SPE ALPHA-2-GLOBULIN 0.7 g/dL (0.4-1.0); *SPE BETA GLOBULIN 0.9 g/dL (0.7-1.3); *SPE M-SPIKE Not Observed g/dL (Not Observed)
[2021-09-01 09:25] VITALS: BP 120/48
[2021-09-01] MEDS: SPIRONOLACTONE 25 MG TABLET PO SCH (09:29)
[2021-09-01] MEDS: LORATADINE 10 MG TABLET PO SCH (09:29)
[2021-09-01] MEDS: NAPHAZOLINE HCL/PHENIR MAL 15 ML BOTTLE EACHEYE SCH ×2 (09:29→16:27)
[2021-09-01] MEDS: LACTULOSE 10 G/15 ML UDC (PYXIS) PO SCH (09:29)
[2021-09-01] MEDS: FAMOTIDINE (20 MG) 20 MG TABLET PO SCH (09:29)
[2021-09-01] MEDS: RIVASTIGMINE TARTRATE 1.5 MG CAPSULE PO SCH ×2 (10:15→21:32)
[2021-09-01] MEDS: risperiDONE 0.25 MG TABLET PO SCH ×2 (10:15→21:32)
[2021-09-01] MEDS ORDERED: FLUMAZENIL 0.5 MG VIAL IV PRN (11:00)
[2021-09-01] MEDS ORDERED: FENTANYL PF 250MCG/5ML AMPUL IV PRN (11:00)
[2021-09-01] MEDS ORDERED: NALOXONE PREFILLED SYRINGE 2 MG/2 ML SYRINGE IV PRN (11:00)
[2021-09-01] MEDS ORDERED: MIDAZOLAM HCL 2 MG/2ML VIAL IV PRN (11:00)
[2021-09-01 17:38] VITALS: BP 129/72
--- NOTE | 2021-09-01 18:49 | NUR ---
MS RN CLOSING NOTES PATIENT AWAKE, IN BED. A/O X 1 WITH CONFUSION AND BEING FORGETFUL. REORIENT THE PATIENT CONSTANTLY. NO SIGNS OF ACUTE DISTRESS NOTED. REMAINS ON ROOM AIR TOLERATING WELL. NO SOB NOTED. NO C/O PAIN OR DISCOMFORT. NO IV ACCESS . PATIENT REFUSED BIOPSY. SECOND TRY WILL BE TOMORROW MORNING.ALL DUE MEDS GIVEN ORDERED . SAFETY MEASURES IN PLACE. BED LOCKED AND IN LOWEST POSITION, SR UP X2, CALL LIGHT AND TABLE PLACED WITHIN EASY REACH. WILL ENDORSE FOR KELLY..
--- NOTE | 2021-09-01 19:42 | NUR ---
RN OPENING NOTES Patient is A&Ox1, in room laying in bed. Is confused about place and situation, patient was reoriented as well as introduced to staff. Is able to walk steadily. Will be NPO post midnight to try again for CT guided needle biopsy of lung in the AM. Will continue to monitor patient.
[2021-09-01 20:00] VITALS: BP 157/70
[2021-09-01] MEDS: BROMOCRIPTINE MESYLATE (2.5MG) 2.5 MG TABLET PO SCH (21:32)
[2021-09-01] MEDS: ZOLPIDEM TARTRATE 5 MG TABLET PO PRN (22:48)
--- NOTE | 2021-09-02 06:05 | NUR ---
RN CLOSING NOTES Patient is A&Ox1 to self only, confused. Ambulatory/wandering prior to going to bed but was able to fall asleep and sleep well throughout the night with the help of PAPO Segovia. Pt. has been NPO since midnight. No signs of distress. Patient resting in bed at this time. Denies any needs.
[2021-09-02 07:22] LABS: BASOPHILS # (AUTO) 0.1 K/uL (0.0-0.2); BASOPHILS % (AUTO) 0.9 % (0.0-2.0); EOSINOPHILS % (AUTO) 4.7 % (0.0-6.0); HEMATOCRIT 35 % (33-45); HEMOGLOBIN 11.9 g/dL (11.5-14.8); LYMPHOCYTES # (AUTO) 1.1 K/uL (0.8-4.8); LYMPHOCYTES % (AUTO) 17.7 % (20.0-44.0); MEAN CORPUSCULAR HGB CONC 34 g/dl (31.0-36.0); MEAN CORPUSCULAR VOLUME 95 fL (82-100); MONOCYTES # (AUTO) 0.5 K/uL (0.1-1.30); MONOCYTES % (AUTO) 8.9 % (2.0-12.0); NEUTROPHILS # (AUTO) 4.2 K/uL (1.8-8.9); NEUTROPHILS % (AUTO) 67.8 % (43.0-81.0); PLATELET COUNT (AUTO) 146 K/uL (150-450); RED BLOOD CELL COUNT(AUTO) 3.68 MIL/uL (4.0-5.2); WHITE BLOOD COUNT (AUTO) 6.1 K/uL (4.3-11.0)
[2021-09-02 08:00] VITALS: BP 113/54
[2021-09-02] MEDS: LORATADINE 10 MG TABLET PO SCH (09:20)
[2021-09-02] MEDS: LACTULOSE 10 G/15 ML UDC (PYXIS) PO SCH (09:20)
[2021-09-02] MEDS: FAMOTIDINE (20 MG) 20 MG TABLET PO SCH (09:20)
[2021-09-02] MEDS: SPIRONOLACTONE 25 MG TABLET PO SCH (09:20)
[2021-09-02] MEDS: NAPHAZOLINE HCL/PHENIR MAL 15 ML BOTTLE EACHEYE SCH ×2 (09:20→16:36)
[2021-09-02] MEDS: risperiDONE 0.25 MG TABLET PO SCH ×2 (09:58→21:46)
[2021-09-02] MEDS: RIVASTIGMINE TARTRATE 1.5 MG CAPSULE PO SCH ×2 (09:58→21:46)
[2021-09-02] MEDS ORDERED: LORAZEPAM 1 MG TABLET PO SCH (10:00)
[2021-09-02] MEDS ORDERED: LORAZEPAM 1 MG TABLET PO PRN (10:00)
[2021-09-02 10:17] LABS: CALCIUM, SERUM 8.3 mg/dL (8.5-10.1); MAGNESIUM 2.3 mg/dL (1.8-2.4); POTASSIUM 3.9 mmol/L (3.5-5.1)
[2021-09-02 16:00] VITALS: BP 114/53
--- NOTE | 2021-09-02 19:30 | NUR ---
MS RN CLOSING NOTES PATIENT AWAKE, IN BED. A/O X 1 WITH CONFUSION AND BEING FORGETFUL. REORIENT THE PATIENT CONSTANTLY. NO SIGNS OF ACUTE DISTRESS NOTED. REMAINS ON ROOM AIR TOLERATING WELL. NO SOB NOTED. NO C/O PAIN OR DISCOMFORT. NO IV ACCESS . NPO FOR TOMORROW BIOPSY . ALL DUE MEDS GIVEN ORDERED . SAFETY MEASURES IN PLACE. BED LOCKED AND IN LOWEST POSITION, SR UP X2, CALL LIGHT AND TABLE PLACED WITHIN EASY REACH. WILL ENDORSE FOR KELLY..
[2021-09-02 20:00] VITALS: BP 126/64
--- NOTE | 2021-09-02 20:23 | NUR ---
received in bed bed alarm financial economist light within reach smiling noted orientated x1
[2021-09-02] MEDS: BROMOCRIPTINE MESYLATE (2.5MG) 2.5 MG TABLET PO SCH (21:46)
[2021-09-02] MEDS: ZOLPIDEM TARTRATE 5 MG TABLET PO PRN (22:41)
--- NOTE | 2021-09-03 05:33 | NUR ---
Ending Notres: slept thru the night NPO as ordered for Lung Bx this AM Ambulated with assist X2 to the bathroom with standby assist bed alarm on
[2021-09-03 06:23] LABS: BASOPHILS # (AUTO) 0.1 K/uL (0.0-0.2); BASOPHILS % (AUTO) 0.8 % (0.0-2.0); EOSINOPHILS % (AUTO) 5.2 % (0.0-6.0); HEMATOCRIT 35 % (33-45); HEMOGLOBIN 11.9 g/dL (11.5-14.8); LYMPHOCYTES # (AUTO) 1.2 K/uL (0.8-4.8); LYMPHOCYTES % (AUTO) 19.7 % (20.0-44.0); MEAN CORPUSCULAR HGB CONC 34 g/dl (31.0-36.0); MEAN CORPUSCULAR VOLUME 95 fL (82-100); MONOCYTES # (AUTO) 0.6 K/uL (0.1-1.30); MONOCYTES % (AUTO) 9.3 % (2.0-12.0); PLATELET COUNT (AUTO) 150 K/uL (150-450); RED BLOOD CELL COUNT(AUTO) 3.66 MIL/uL (4.0-5.2); WHITE BLOOD COUNT (AUTO) 6.2 K/uL (4.3-11.0)
--- NOTE | 2021-09-03 07:30 | NUR ---
MS RN OPENING NOTES PATIENT AWAKE, IN BED. A/O X2 WITH CONFUSION. NOTED TALKING TO SELF. NO SIGNS OF ACUTE DISTRESS NOTED. REMAINS ON ROOM AIR TOLERATING WELL. NO SOB NOTED. NO C/O PAIN OR DISCOMFORT.NO IV ACCESS AT THIS TIME. PATIENT REFUSED REINSERTION. SAFETY MEASURES IN PLACE. BED LOCKED AND IN LOWEST POSITION, SR UP X2, CALL LIGHT PLACED WITHIN EASY REACH. WILL CONTINUE TO MONITOR.
[2021-09-03 07:52] LABS: CALCIUM, SERUM 8.5 mg/dL (8.5-10.1); CREATININE 1.1 mg/dL (0.6-1.3); MAGNESIUM 2.3 mg/dL (1.8-2.4); POTASSIUM 4.3 mmol/L (3.5-5.1)
[2021-09-03 08:00] VITALS: BP 115/65
[2021-09-03] MEDS: LORATADINE 10 MG TABLET PO SCH (08:33)
[2021-09-03] MEDS: FAMOTIDINE (20 MG) 20 MG TABLET PO SCH (08:33)
[2021-09-03] MEDS: LACTULOSE 10 G/15 ML UDC (PYXIS) PO SCH (08:34)
[2021-09-03] MEDS: SPIRONOLACTONE 25 MG TABLET PO SCH (08:34)
[2021-09-03] MEDS: NAPHAZOLINE HCL/PHENIR MAL 15 ML BOTTLE EACHEYE SCH ×2 (08:50→16:04)
[2021-09-03] MEDS: risperiDONE 0.25 MG TABLET PO SCH ×2 (09:19→22:18)
[2021-09-03] MEDS: RIVASTIGMINE TARTRATE 1.5 MG CAPSULE PO SCH ×2 (09:19→22:19)
--- NOTE | 2021-09-03 12:29 | NUR ---
SS consult: SS Consult for responsible green party. MERISSA called the pt.'s SNF, [facility] [phone] and was given the number to the patient's sister, Alla Santana [phone]. MERISSA provided this contact information to Raul Duong NP. MERISSA will remain available as needed.
[2021-09-03 16:00] VITALS: BP 119/64
--- NOTE | 2021-09-03 19:00 | NUR ---
MS RN CLOSING NOTES PATIENT IS AWAKE IN BED. REORIENTED THE PATIENT FREQUENTLY. NO SIGNS OF ACUTE DISTRESS NOTED. REMAINS ON ROOM AIR TOLERATING WELL. NO SOB NOTED. NO C/O PAIN OR DISCOMFORT. IV ACCESS RWRIST 22 PATENT AND INTACT . NPO FOR TOMORROWS BIOPSY. ALL DUE MEDS GIVEN ORDERED . SAFETY MEASURES IN PLACE. BED LOCKED AND IN LOWEST POSITION, SR UP X2, CALL LIGHT AND TABLE PLACED WITHIN EASY REACH. WILL ENDORSE CONTINUITY OF CARE TO ONCOMING SHIFT.
--- NOTE | 2021-09-03 19:01 | NUR ---
MS RN OPENING NOTES PATIENT AWAKE, IN BED. A/O X2 WITH CONFUSION. NOTED TALKING TO SELF. NO SIGNS OF ACUTE DISTRESS NOTED. REMAINS ON ROOM AIR TOLERATING WELL. NO SOB NOTED. NO C/O PAIN OR DISCOMFORT.NO IV ACCESS AT THIS TIME. PATIENT REFUSED REINSERTION. SAFETY MEASURES IN PLACE. BED LOCKED AND IN LOWEST POSITION, SR UP X2, CALL LIGHT PLACED WITHIN EASY REACH. WILL CONTINUE TO MONITOR. Addendum: 09/03/21 at 1901 by SHAY MONROE RN ERR
--- NOTE | 2021-09-03 19:33 | NUR ---
MS RN OPENING NOTES: PATIENT UP AND WANDERING WITH STEADY GAIT AM SHIFT NURSE AND I WERE APPROACHING ROOM FOR CHANGE OF SHIFT REPORT. REORIENTED PATIENT BACK TO BED, PATIENT BECAME TEARFUL STATING SHE MISSES HER SONS THEN CALMED SHE WAS SETTLED IN BED. NO S/SX ACUTE DISTRESS. NO DYSPNEA ON EXERTION. DENIES PAIN. IV ACCESS R FA, FLUSHED AND PATENT. DRESSING C/D/I. COVERED WITH SLEEVE TO PREVENT DISLODGEMENT. NPO FOR BIOPSY TOMORROW. SAFETY MEASURES IN PLACE. BED LOW AND LOCKED POSITION, HOB ELEVATED TO SEMI-TORO'S POSITION. SIDE RAILS UP X2, CALL LIGHT AND FREQUENTLY USED ITEMS WITHIN REACH.
[2021-09-03 20:00] VITALS: BP 114/51
[2021-09-03] MEDS: BROMOCRIPTINE MESYLATE (2.5MG) 2.5 MG TABLET PO SCH (22:18)
[2021-09-04] VITALS (10 sets, daily range): BP systolic 95–127; BP diastolic 52–99
--- NOTE | 2021-09-04 01:48 | NUR ---
PATIENT C/O NAUSEA AND FEELING LIKE SHE COULD "THROW UP." NO EMESIS OBSERVED/REPORTED. ADMINISTERED ZOFRAN PER PRN ORDER.
--- NOTE | 2021-09-04 02:15 | NUR ---
PATIENT DENIES NAUSEA. NO EMESIS OBSERVED/REPORTED.
--- NOTE | 2021-09-04 05:57 | NUR ---
MS RN CLOSING NOTES: PATIENT IN BED, EYES CLOSED. NAD AND STABLE. PATIENT ALERT AND ORIENTED TO PERSON THROUGHOUT THE SHIFT. CONFUSED TO BASELINE. PATIENT GOT UP DURING SHIFT X2, STARTED WANDERING AROUND, CONFUSED TO WHERE SHE IS. ABLE TO REDIRECT PATIENT BACK TO BED WITHOUT DIFFICULTY. PATIENT IS STEADY ON FEET. PATIENT IS COOPERATIVE WITH CARE AND ABLE TO VERBALIZE NEEDS. NO DYSPNEA ON EXERTION. DENIES PAIN. IV ACCESS #22 GAUGE TO R FA. DRESSING C/D/I. COVERED WITH SLEEVE TO PREVENT DISLODGEMENT. NPO SINCE MIDNIGHT FOR BIOPSY TODAY. SAFETY MEASURES IN PLACE. BED LOW AND LOCKED POSITION, HOB ELEVATED TO SEMI-TORO'S POSITION. SIDE RAILS UP X2, CALL LIGHT AND FREQUENTLY USED ITEMS WITHIN REACH.
[2021-09-04 07:17] LABS: BASOPHILS # (AUTO) 0.1 K/uL (0.0-0.2); BASOPHILS % (AUTO) 1.1 % (0.0-2.0); EOSINOPHILS % (AUTO) 5.5 % (0.0-6.0); HEMATOCRIT 37 % (33-45); HEMOGLOBIN 12.5 g/dL (11.5-14.8); LYMPHOCYTES # (AUTO) 1.3 K/uL (0.8-4.8); LYMPHOCYTES % (AUTO) 21.1 % (20.0-44.0); MEAN CORPUSCULAR HGB CONC 34 g/dl (31.0-36.0); MEAN CORPUSCULAR VOLUME 96 fL (82-100); MONOCYTES # (AUTO) 0.6 K/uL (0.1-1.30); NEUTROPHILS % (AUTO) 63.3 % (43.0-81.0); PLATELET COUNT (AUTO) 157 K/uL (150-450); RED BLOOD CELL COUNT(AUTO) 3.84 MIL/uL (4.0-5.2); WHITE BLOOD COUNT (AUTO) 6.3 K/uL (4.3-11.0)
[2021-09-04 07:33] LABS: CALCIUM, SERUM 8.4 mg/dL (8.5-10.1); CREATININE 1.1 mg/dL (0.6-1.3); MAGNESIUM 2.2 mg/dL (1.8-2.4); POTASSIUM 4.2 mmol/L (3.5-5.1)
[2021-09-04] MEDS: SPIRONOLACTONE 25 MG TABLET PO SCH (09:00)
[2021-09-04] MEDS: FAMOTIDINE (20 MG) 20 MG TABLET PO SCH (09:23)
[2021-09-04] MEDS: RIVASTIGMINE TARTRATE 1.5 MG CAPSULE PO SCH ×2 (09:23→22:00)
[2021-09-04] MEDS: LORATADINE 10 MG TABLET PO SCH (09:23)
[2021-09-04] MEDS: risperiDONE 0.25 MG TABLET PO SCH ×2 (09:23→22:00)
[2021-09-04] MEDS: LACTULOSE 10 G/15 ML UDC (PYXIS) PO SCH (09:23)
[2021-09-04] MEDS: NAPHAZOLINE HCL/PHENIR MAL 15 ML BOTTLE EACHEYE SCH ×2 (09:24→17:00)
[2021-09-04] MEDS ORDERED: LORAZEPAM 1 MG TABLET PO ONE (10:00)
[2021-09-04] MEDS ORDERED: FENTANYL PF 250MCG/5ML AMPUL IV PRN (12:00)
[2021-09-04] MEDS ORDERED: NALOXONE PREFILLED SYRINGE 2 MG/2 ML SYRINGE IV PRN (12:00)
[2021-09-04] MEDS ORDERED: FLUMAZENIL 0.5 MG VIAL IV PRN (12:00)
[2021-09-04] MEDS ORDERED: MIDAZOLAM HCL 2 MG/2ML VIAL IV PRN (12:00)
--- NOTE | 2021-09-04 12:09 | NUR ---
pt's sister Alla gave consent over the phone for lung biopsy and anesthesia as well. conformed by 2 RN's via phone.
--- NOTE | 2021-09-04 15:32 | NUR ---
Received call from radiologist that chest biopsy follow up c-xry shows that pt developed pneumothorax. pt comfortably resting in bed, no sob or distress noted. radiology provided with phone number of Raul Duong to give report. Will administer O2.
--- NOTE | 2021-09-04 15:42 | NUR ---
MS/RN REBREATHER O2 TREATMENT STARTED AT 10L PER MARIETTA FRANKLIN CABLE TOOL OPERATOR TELEPHONE ORDERS. PT IS CONFUSED AND DEMENTED AND TAKES THE MASK OFF.
--- NOTE | 2021-09-04 16:00 | NUR ---
Pr noted with removal of O2, nurse quality at bedside to monitor pt for O2 intake.
[2021-09-04] MEDS ORDERED: LORAZEPAM INJ 2 MG/ML VIAL IV ONE ×2 (17:30→19:00)
[2021-09-04] MEDS ORDERED: LORAZEPAM INJ 2 MG/ML VIAL ONE (18:50)
[2021-09-04] MEDS ORDERED: LIDOCAINE 1% INJ 50 ML MDV IJ ONE (19:00)
--- NOTE | 2021-09-04 19:09 | NUR ---
MS/RN CHEST TUBE INSERTED R UPPER CHEST BY DR KAYE . 8ML LIDOCANE ADMINISTERED BY DR KAYE. ATIVAN 2MG IV GIVEN PRIOR TO THE PROCEDURE ORDERED BY MIKKI GOLDEN. DR KAYE MADE AWARE THAT PT ALREADY HAD 1MG OF ATIVAN IV 30 MIN EARLIER. PT I KIN NO S/S DISTRESS NOTED. ENDORSING TO GOLF BALL INSPECTOR ACCORDINGLY Addendum: 09/04/21 at 1916 by JORGE L FARIAS RN BP 110/74 93 O2 100
--- NOTE | 2021-09-04 19:41 | NUR ---
RN NOTES RECEIVED PATIENT IN BED, SEDATED, S/P CHEST TUBE INSERTION, VS STABLE 117/81 93 HR, 96.6 TEMP AXILLARY, SPO2 AT 10LPM VIA NON REBREATHER 100%, SMALL ORANGE TINGED DRAINAGE IN THE TUBING.
--- NOTE | 2021-09-04 20:45 | NUR ---
RN NOTES PNEUMODART IS INSERTED TO RIGHT LUNG, NEW ORDER TO TRANSFER PATIENT TO ICU, GIVEN REPORT TO CHARGE NURSE ED. SEEN BY ISAI VILLEDA IN ICU.
[2021-09-04] MEDS: BROMOCRIPTINE MESYLATE (2.5MG) 2.5 MG TABLET PO SCH (22:00)
[2021-09-04 22:54] LABS: ABG BASE EXCESS -2.7 mmol/L; ABG OXYGEN SATURATION 99.1 % (92.0-98.5); ABG PCO2 43.3 mmHg (35.0-45.0); ABG PH 7.343 (7.350-7.450); ABG PO2 198.5 mmHg (75.0-100.0); AaDO2 471.2 mmHg; COHb 0.2 % (0.5-1.5); MetHb 0.2 % (0.0-1.5); O2Hb 98.7 % (94.0-97.0); SITE, ABG Right Radial; VENT MODE, BG NRB 15L 100%
[2021-09-05] VITALS (30 sets, daily range): BP systolic 66–140; BP diastolic 27–104
[2021-09-05 04:54] LABS: CALCIUM, SERUM 8.4 mg/dL (8.5-10.1); CARBON DIOXIDE 28 mmol/L (21-32); CHLORIDE 102 mmol/L (98-107); CREATININE 1.2 mg/dL (0.6-1.3); GLUCOSE 100 mg/dL (74-106); MAGNESIUM 2.2 mg/dL (1.8-2.4); POTASSIUM 4.4 mmol/L (3.5-5.1); SODIUM SERUM 135 mmol/L (136-145); UREA NITROGEN, BLOOD 15 mg/dL (7-18)
[2021-09-05 05:00] LABS: BASOPHILS # (AUTO) 0.1 K/uL (0.0-0.2); BASOPHILS % (AUTO) 0.7 % (0.0-2.0); EOSINOPHILS % (AUTO) 1.7 % (0.0-6.0); HEMATOCRIT 37 % (33-45); HEMOGLOBIN 12.5 g/dL (11.5-14.8); LYMPHOCYTES # (AUTO) 1.2 K/uL (0.8-4.8); LYMPHOCYTES % (AUTO) 12.9 % (20.0-44.0); MEAN CORPUSCULAR HGB CONC 34 g/dl (31.0-36.0); MEAN CORPUSCULAR VOLUME 96 fL (82-100); MONOCYTES # (AUTO) 0.8 K/uL (0.1-1.30); MONOCYTES % (AUTO) 8.2 % (2.0-12.0); NEUTROPHILS # (AUTO) 7.1 K/uL (1.8-8.9); NEUTROPHILS % (AUTO) 76.5 % (43.0-81.0); PLATELET COUNT (AUTO) 160 K/uL (150-450); RED BLOOD CELL COUNT(AUTO) 3.87 MIL/uL (4.0-5.2); WHITE BLOOD COUNT (AUTO) 9.3 K/uL (4.3-11.0)
[2021-09-05] MEDS: ALENDRONATE 70 MG TABLET PO SCH (05:55)
--- NOTE | 2021-09-05 07:08 | NUR ---
RN OPENING NOTE RECEIVE REPORT FROM [employer] RETAILER SALES CONSULTANT NURSE. PATIENT IN STABLE CONDITION. ON SIMPLE MASK AT 10L/MIN. CHEST TUBE ON WALL SUCTION NO BUBBLING. WILL FOLLOW UP LABS AND DOCTOR ORDERS. PROPER ISOLATION PRECAUTION IN PLACE. ALL SAFETY MEASURE IN PLACE. BED ON LOWEST POSITION WITH HEAD OF BED ELEVATED AND 3 SIDE RAIL UP. CALL LIGHT WITHIN REACH. WILL CONTINUE TO MONITOR.
[2021-09-05] MEDS: LACTULOSE 10 G/15 ML UDC (PYXIS) PO SCH (08:52)
[2021-09-05] MEDS: FAMOTIDINE (20 MG) 20 MG TABLET PO SCH (08:52)
[2021-09-05] MEDS: SPIRONOLACTONE 25 MG TABLET PO SCH (08:52)
[2021-09-05] MEDS: LORATADINE 10 MG TABLET PO SCH (08:52)
--- NOTE | 2021-09-05 08:53 | NUR ---
RN NOTE PATIENT UNABLE TO TAKE PO MEDICATIONS. PATIENT IS LETHARGIC.
[2021-09-05] MEDS: RIVASTIGMINE TARTRATE 1.5 MG CAPSULE PO SCH ×2 (10:00→21:08)
[2021-09-05] MEDS: risperiDONE 0.25 MG TABLET PO SCH ×2 (10:00→21:07)
[2021-09-05] MEDS: NAPHAZOLINE HCL/PHENIR MAL 15 ML BOTTLE EACHEYE SCH ×2 (10:54→17:22)
--- NOTE | 2021-09-05 15:20 | NUR ---
RN NOTE PATIENT PULLED OUT CHEST TUBE.
--- NOTE | 2021-09-05 17:52 | NUR ---
RN NOTE TITRATE O2 DOWN TO 4L/MIN VIA NC. O2 SAT AT 98%.
--- NOTE | 2021-09-05 18:16 | NUR ---
RN CLOSING NOTE PATIENT REMAIN IN STABLE CONDITION THROUGH 0UT SHIFT. BOOSTER OPERATOR CXR SHOWS PNEUMOTHRORAX SLIGHTLY LARGER WHEN COMPARED TO PREVIOUS. DR. FRANKLIN AND DR. MATA WAS ABLE TO MANIPULATE THE CHEST TUBE. BUBBLIN WAS NOTED DURING MANIPULATION. CXR WAS TAKEN POST MANIPULATION REVEALS RE-EXPANDED LUNG WITH NO FURTHER PNUEMOTHORAX. PATIENT PULL OUT CHEST TUBE @1430. DRESSING WAS PLACED ON CHEST. PATIENT SAT AT 100% POST CHEST TUBE DISLOGED. STAT CXR WAS ORDER AND TAKEN. AWAITING CXR TO BE READ. TITRATING OXYGEN DELIVERY. CURRENTLY ON NC @4L/MIN WITH O2 SAT AT 98%. DUE TO CHEST TUBE BEING PULLED OUT, DR. FRANKLIN WANT SIMPLE MASK TO BE PLACE ON PATIETN AT 8L/MIN. ICE CHIPS AND WATER WAS PROVIDED TO PATIENT. PATIENT TOLLERATED WELL. SOFT DIET WAS ORDERED PER DR. FRANKLIN. PAITENT CONSUME 75% OF DINNER WITH NO SIGN OF N/V. ALL SAFETY MEASURE IN PLACE. BED ON LOWEST POSITION WITH HOB ELELVATED AND 3 SIDE RAIL UP. CALL LIGHT WITHIN REACH. WILL CONTINUE TO MONITOR AND ENDORSE TO NIGHT FIT NURSE.
--- NOTE | 2021-09-05 19:59 | NUR ---
RN NOTE RECEIVED PATIENT IN BED, AWAKE, ALERT, AND VERBALLY RESPONSIVE. AOX1. CONFUSED BUT ABLE TO FOLLOW SOME COMMANDS. ON TELE MONITORING, SINUS RHYTHM. DENIES CHEST PAIN. BREATHING EVEN AND UNLABORED. PATIENT STATES MILD SOB. RECEIVED PT WITH FACE MASK AT 10L/MIN. SATURATION OF 100 PERCENT. SWITCHED TO NASAL CANNULA 4L/MIN. TOLERATING WELL AT 99 PERCENT. HOB ELEVATED 35 DEGREES. SKIN WARM AND DRY. NOTED WITH LEFT UPPER ARM MIDLINE, FLUSHES WELL WITH NO INFILTRATION, NO IVF RUNNING. NOTED WITH INTACT DRESSING ON RIGHT UPPER CHEST WALL, S/P CHEST TUBE. NOTED WITH CHASE CATHETER, IN TACT, NO HEMATURIA, DRAINING DIANE URINE. ON BILATERAL SOFT WRIST RESTRAINTS. CAPILLARY REFILLS WNL. BED LOW, IN LOCKED POSITION, CALL LIGHT WITHIN REACH.
[2021-09-05] MEDS: BROMOCRIPTINE MESYLATE (2.5MG) 2.5 MG TABLET PO SCH (21:07)
[2021-09-06] VITALS (25 sets, daily range): BP systolic 92–135; BP diastolic 53–98
[2021-09-06 05:13] LABS: BASOPHILS % (AUTO) 0.3 % (0.0-2.0); EOSINOPHILS % (AUTO) 3.6 % (0.0-6.0); HEMATOCRIT 45 % (33-45); HEMOGLOBIN 15.2 g/dL (11.5-14.8); LYMPHOCYTES # (AUTO) 0.8 K/uL (0.8-4.8); LYMPHOCYTES % (AUTO) 13.4 % (20.0-44.0); MEAN CORPUSCULAR HGB CONC 34 g/dl (31.0-36.0); MEAN CORPUSCULAR VOLUME 96 fL (82-100); MONOCYTES # (AUTO) 0.6 K/uL (0.1-1.30); MONOCYTES % (AUTO) 9.9 % (2.0-12.0); NEUTROPHILS # (AUTO) 4.3 K/uL (1.8-8.9); NEUTROPHILS % (AUTO) 72.8 % (43.0-81.0); PLATELET COUNT (AUTO) 104 K/uL (150-450); RED BLOOD CELL COUNT(AUTO) 4.69 MIL/uL (4.0-5.2)
[2021-09-06 05:18] LABS: CALCIUM, SERUM 8.3 mg/dL (8.5-10.1); CARBON DIOXIDE 28 mmol/L (21-32); CHLORIDE 101 mmol/L (98-107); CREATININE 1.3 mg/dL (0.6-1.3); GLUCOSE 85 mg/dL (74-106); POTASSIUM 3.8 mmol/L (3.5-5.1); SODIUM SERUM 136 mmol/L (136-145); UREA NITROGEN, BLOOD 18 mg/dL (7-18)
--- NOTE | 2021-09-06 06:27 | NUR ---
RN NOTE NO SIGNIFICANT CHANGES. PATIENT IN BED, SLEEPING, EASILY AROUSABLE. AOX1. NO EPISODE OF SHORTNESS OF BREATH/DESATURATION. MAINTAINED 99-100 PERCENT O2 SATURATION WITH 4L/MIN OXYGEN. HOB ELEVATED 30 DEGREES. ACTIVE RANGE OF MOTION PERFORMED ON ALL EXTREMITIES. TURNED AND REPOSITIONED. PATIENT HAD EPISODES OF PULLING ON OCCLUSIVE DRESSING ON RIGHT UPPER CHEST. OCCLUSIVE DRESSING REINFORCED. NO BLEEDING FROM SITE. PROVIDED FLUIDS FOR HYDRATION. CALL LIGHT WITHIN REACH.
[2021-09-06] MEDS: LORATADINE 10 MG TABLET PO SCH (08:21)
[2021-09-06] MEDS: LACTULOSE 10 G/15 ML UDC (PYXIS) PO SCH (08:21)
[2021-09-06] MEDS: SPIRONOLACTONE 25 MG TABLET PO SCH (08:21)
[2021-09-06] MEDS: FAMOTIDINE (20 MG) 20 MG TABLET PO SCH (08:21)
[2021-09-06] MEDS: NAPHAZOLINE HCL/PHENIR MAL 15 ML BOTTLE EACHEYE SCH ×2 (08:22→17:09)
[2021-09-06] MEDS: risperiDONE 0.25 MG TABLET PO SCH ×2 (09:19→21:39)
[2021-09-06] MEDS: RIVASTIGMINE TARTRATE 1.5 MG CAPSULE PO SCH ×2 (09:20→21:40)
[2021-09-06] MEDS ORDERED: diphenhydrAMINE HCL 25 MG CAPSULE PO PRN (18:30)
--- NOTE | 2021-09-06 19:20 | NUR ---
RN OPENING NOTES RECEIVED PATIENT ON BED, AWAKE, ALERT, CONFUSED, RESPIRATORY EVEN AND UNLABORED, NO SOB NOTED, NOT IN DISTRESS. REMAIN AFEBRILE. ON NASAL CANULA @ 4 LPM. NOTED WITH MITCH MIDLINE, INTACT, PATENT AND FLUSHED WITH NS. NO INFILTRATION. CHASE CATHETER INPLACED AND DRAINING WELL BY GRAVITY. ALL SAFETY MEASURE PROVIDED, BED ON LOWEST POSITION, LOCKED. CONTINUE TO MONITOR.
[2021-09-06] MEDS: BROMOCRIPTINE MESYLATE (2.5MG) 2.5 MG TABLET PO SCH (21:40)
[2021-09-06] MEDS: ZOLPIDEM TARTRATE 5 MG TABLET PO PRN (22:28)
[2021-09-07] VITALS (32 sets, daily range): BP systolic 88–134; BP diastolic 58–96
[2021-09-07 04:55] LABS: BASOPHILS % (AUTO) 0.3 % (0.0-2.0); EOSINOPHILS % (AUTO) 3.4 % (0.0-6.0); HEMATOCRIT 38 % (33-45); HEMOGLOBIN 12.9 g/dL (11.5-14.8); LYMPHOCYTES # (AUTO) 1.1 K/uL (0.8-4.8); LYMPHOCYTES % (AUTO) 12.8 % (20.0-44.0); MEAN CORPUSCULAR HGB CONC 34 g/dl (31.0-36.0); MEAN CORPUSCULAR VOLUME 95 fL (82-100); MONOCYTES # (AUTO) 0.9 K/uL (0.1-1.30); MONOCYTES % (AUTO) 9.9 % (2.0-12.0); NEUTROPHILS # (AUTO) 6.3 K/uL (1.8-8.9); NEUTROPHILS % (AUTO) 73.6 % (43.0-81.0); PLATELET COUNT (AUTO) 130 K/uL (150-450); RED BLOOD CELL COUNT(AUTO) 3.96 MIL/uL (4.0-5.2); WHITE BLOOD COUNT (AUTO) 8.6 K/uL (4.3-11.0)
[2021-09-07 05:17] LABS: CALCIUM, SERUM 8.2 mg/dL (8.5-10.1); CARBON DIOXIDE 28 mmol/L (21-32); CHLORIDE 100 mmol/L (98-107); GLUCOSE 115 mg/dL (74-106); MAGNESIUM 1.8 mg/dL (1.8-2.4); POTASSIUM 3.6 mmol/L (3.5-5.1); SODIUM SERUM 134 mmol/L (136-145); UREA NITROGEN, BLOOD 12 mg/dL (7-18)
--- NOTE | 2021-09-07 07:20 | NUR ---
RN CLOSING NOTES NO SIGNIFICANT CHANGES THROUGH OUT THE SHIFT. RESPIRATORY EVEN AND UNLABORED, NO SOB NOTED, NOT IN DISTRESS. REMAIN AFEBRILE. ON NASAL CANULA @ 4 LPM. CHASE CATHETER INPLACED AND DRAINING WELL BY GRAVITY. ALL DUE MEDS GIVEN ORDERED. ALL SAFETY MEASURE PROVIDED, BED ON LOWEST POSITION, LOCKED. CONTINUE TO MONITOR.
--- NOTE | 2021-09-07 07:25 | NUR ---
RN OPENING NOTES RECEIVED PATIENT IN BED, AWAKE, ALERT/ORIENTED2, WITH PERIODS OF CONFUSION. BREATHING EVEN AND UNLABORED, NO SOB OR ANY ACUTE DISTRESS NOTED AT THE TIME. REMAIN AFEBRILE. ON NASAL CANULA @ 4 LPM WITH SATURATION OF 100%. NOTED WITH MITCH MIDLINE, INTACT, PATENT AND FLUSHED WITH NS. NO SIGNS OF INFILTRATION. CHASE CATHETER IN PLACED AND DRAINING WELL BY GRAVITY. ALL SAFETY MEASURE PROVIDED, HOB ELEVATED BED ON LOWEST POSITION, LOCKED, WITH SIDE RAILS UP. CALL LIGHT WITHIN REACH OF PATIENT. WILL CONTINUE TO MONITOR PATIENT ACCORDINGLY.
[2021-09-07] MEDS: NAPHAZOLINE HCL/PHENIR MAL 15 ML BOTTLE EACHEYE SCH ×2 (09:29→16:52)
[2021-09-07] MEDS: RIVASTIGMINE TARTRATE 1.5 MG CAPSULE PO SCH ×2 (09:29→21:45)
[2021-09-07] MEDS: FAMOTIDINE (20 MG) 20 MG TABLET PO SCH (09:29)
[2021-09-07] MEDS: SPIRONOLACTONE 25 MG TABLET PO SCH (09:29)
[2021-09-07] MEDS: LORATADINE 10 MG TABLET PO SCH (09:29)
[2021-09-07] MEDS: risperiDONE 0.25 MG TABLET PO SCH ×2 (09:29→21:44)
[2021-09-07] MEDS: LACTULOSE 10 G/15 ML UDC (PYXIS) PO SCH (09:31)
[2021-09-07] MEDS ORDERED: FENTANYL PF 100MCG/2ML AMPUL IV ONE (10:30)
[2021-09-07] MEDS ORDERED: KETAMINE HCL(200MG/20ML) 10 MG/ML VIAL IM ONE (10:30)
[2021-09-07] MEDS ORDERED: KETAMINE HCL (500MG/10ML) 50 MG/ML VIAL IM ONE (10:30)
--- NOTE | 2021-09-07 10:45 | NUR ---
RN NOTES CHEST TUBE PLACEMENT PROCEDURE PERFORMED BY DR. HAILY MATA AND DR. MARIETTA FRANKLIN AT BEDSIDE. PROCEDURE TOLERATED WELL BY PATIENT. CHEST TUBE PATENT AND INTACT, DRAINING WELL. WILL CONTINUE TO MONITOR PATIENT CLOSELY.
--- NOTE | 2021-09-07 11:20 | NUR ---
RN NOTES PATIENT AWAKE, OPENS EYES FROM MODERATE SEDATION VITAL SIGNS: HR-107, BP-124/73, [id number]%, RESP-22. NO BLEEDING NOTED AT CHEST TUBE PLACEMENT SITE. ALL SAFETY MEASURES IN PLACE. WILL CONTINUE TO MONITOR PATIENT CLOSELY.
--- NOTE | 2021-09-07 11:27 | NUR ---
RN NOTES PULLED CHEST TUBE CATHETER BY 3CM, PER DR. HAILY MATA, TOLERATED BY PATIENT RE-SECURED SITE WITH OCCLUSION DRESSING, GAUZED AND TAPED SECURELY. CHEST TUBE REMAINS INTACT, PATENT AND DRAINING WELL.
[2021-09-07] MEDS: ENSURE ENLIVE 237 ML LIQUID (VANILLA) PO SCH ×2 (13:21→16:52)
--- NOTE | 2021-09-07 18:00 | NUR ---
RN NOTES PATIENT CONSUMED 50% OF HER DINNER TRAY. ALL NEEDS ATTENDED. TURNED AND REPOSITION PATIENT. ALL SAFETY MEASURES IN PLACE. WILL CONTINUE TO MONITOR PATIENT CLOSELY.
--- NOTE | 2021-09-07 19:10 | NUR ---
RN OPENING NOTES RECEIVED PATIENT ON BED, AWAKE, ALERT, CONFUSED, RESPIRATORY EVEN AND UNLABORED, NO SOB NOTED, NOT IN DISTRESS. REMAIN AFEBRILE. ON NASAL CANULA @ 4 LPM. NOTED WITH MITCH MIDLINE, INTACT, PATENT AND FLUSHED WITH NS. NO INFILTRATION. WITH CHEST TUBE CONNECTED TO LT. LATERAL SIDE OF BODY. CHASE CATHETER INPLACED AND DRAINING WELL BY GRAVITY. ALL SAFETY MEASURE PROVIDED, BED ON LOWEST POSITION, LOCKED. CONTINUE TO MONITOR. Addendum: 09/07/21 at 1955 by JAKE HOWELL RN *RIGHT LATERAL SIDE OF THE BODY CHEST TUBE
--- NOTE | 2021-09-07 19:26 | NUR ---
RN CLOSING NOTES PATIENT REMAINS IN STABLE CONDITION THROUGHOUT SHIFT. BREATHING EVEN AND UNLABORED, NO SOB OR ANY ACUTE DISTRESS NOTED AT THE TIME. REMAIN AFEBRILE. ON NASAL CANULA @ 4 LPM WITH SATURATION OF 100%. ALL DUE MEDS GIVEN ORDERED. KEPT PATIENT CLEAN, DRY AND COMFORTABLE. ALL NEEDS ATTENDED. CHASE CATHETER IN PLACED AND DRAINING WELL BY GRAVITY. ALL SAFETY MEASURE PROVIDED, HOB ELEVATED BED ON LOWEST POSITION, LOCKED, WITH SIDE RAILS UP. CALL LIGHT WITHIN REACH OF PATIENT. ENDORSED TO ONCOMING NURSE FOR CONTINUITY OF CARE.
[2021-09-07] MEDS: BROMOCRIPTINE MESYLATE (2.5MG) 2.5 MG TABLET PO SCH (21:44)
[2021-09-08] VITALS (18 sets, daily range): BP systolic 100–123; BP diastolic 53–67
[2021-09-08 04:49] LABS: BASOPHILS # (AUTO) 0.1 K/uL (0.0-0.2); BASOPHILS % (AUTO) 0.6 % (0.0-2.0); EOSINOPHILS % (AUTO) 3.9 % (0.0-6.0); HEMATOCRIT 36 % (33-45); HEMOGLOBIN 12.5 g/dL (11.5-14.8); LYMPHOCYTES # (AUTO) 1.2 K/uL (0.8-4.8); MEAN CORPUSCULAR HGB CONC 34 g/dl (31.0-36.0); MEAN CORPUSCULAR VOLUME 94 fL (82-100); MONOCYTES # (AUTO) 1.1 K/uL (0.1-1.30); MONOCYTES % (AUTO) 10.3 % (2.0-12.0); NEUTROPHILS # (AUTO) 7.5 K/uL (1.8-8.9); NEUTROPHILS % (AUTO) 73.2 % (43.0-81.0); PLATELET COUNT (AUTO) 134 K/uL (150-450); RED BLOOD CELL COUNT(AUTO) 3.87 MIL/uL (4.0-5.2); WHITE BLOOD COUNT (AUTO) 10.3 K/uL (4.3-11.0)
[2021-09-08 05:03] LABS: CALCIUM, SERUM 8.8 mg/dL (8.5-10.1); CARBON DIOXIDE 29 mmol/L (21-32); CHLORIDE 100 mmol/L (98-107); CREATININE 0.9 mg/dL (0.6-1.3); GLUCOSE 119 mg/dL (74-106); MAGNESIUM 1.9 mg/dL (1.8-2.4); POTASSIUM 4.2 mmol/L (3.5-5.1); SODIUM SERUM 132 mmol/L (136-145); UREA NITROGEN, BLOOD 17 mg/dL (7-18)
--- NOTE | 2021-09-08 07:25 | NUR ---
RN OPENING NOTES RECEIVED PATIENT IN BED, AWAKE, ALERT/ORIENTEDX2, WITH PERIODS OF CONFUSION. BREATHING EVEN AND UNLABORED, NO SOB OR ANY ACUTE DISTRESS NOTED AT THE TIME. REMAIN AFEBRILE. ON NASAL CANULA @ 4 LPM WITH SATURATION OF 97%. NOTED WITH MITCH MIDLINE, INTACT, PATENT AND FLUSHED WITH NS. NO SIGNS OF INFILTRATION. CHASE CATHETER IN PLACED AND DRAINING WELL BY GRAVITY. WITH CHEST TUBE IN RIGHT LATERAL SIDE OF BODY, INTACT AND DRAINING. ALL SAFETY MEASURE PROVIDED, HOB ELEVATED BED ON LOWEST POSITION, LOCKED, WITH SIDE RAILS UP. CALL LIGHT WITHIN REACH OF PATIENT. WILL CONTINUE TO MONITOR PATIENT ACCORDINGLY.
--- NOTE | 2021-09-08 07:31 | NUR ---
RN CLOSING NOTES REMAIN STABLE THROUGH OUT THE SHIFT. RESPIRATORY EVEN AND UNLABORED, NO SOB NOTED, NOT IN DISTRESS. REMAIN AFEBRILE. ON NASAL CANULA @ 4 LPM. CHEST TUBE INTACT. CHASE CATHETER INPLACED AND DRAINING WELL BY GRAVITY. ALL DUE MEDS GIVEN ORDERED. ALL SAFETY MEASURE PROVIDED, BED ON LOWEST POSITION, LOCKED. CONTINUE TO MONITOR.
[2021-09-08] MEDS: ENSURE ENLIVE 237 ML LIQUID (VANILLA) PO SCH ×2 (07:50→17:05)
[2021-09-08] MEDS: LORATADINE 10 MG TABLET PO SCH (09:18)
[2021-09-08] MEDS: risperiDONE 0.25 MG TABLET PO SCH ×2 (09:18→22:05)
[2021-09-08] MEDS: SPIRONOLACTONE 25 MG TABLET PO SCH (09:18)
[2021-09-08] MEDS: LACTULOSE 10 G/15 ML UDC (PYXIS) PO SCH (09:18)
[2021-09-08] MEDS: NAPHAZOLINE HCL/PHENIR MAL 15 ML BOTTLE EACHEYE SCH ×2 (09:18→17:05)
[2021-09-08] MEDS: FAMOTIDINE (20 MG) 20 MG TABLET PO SCH (09:18)
[2021-09-08] MEDS: RIVASTIGMINE TARTRATE 1.5 MG CAPSULE PO SCH ×2 (10:16→22:05)
--- NOTE | 2021-09-08 16:00 | NUR ---
RN NOTES TRANSFERRED PATIENT TO [facility]. PATIENT IN STABLE CONDITION DURING TRANSFER. VITAL SIGNS: TEMP-97.5, PULSE-79, RESPIRATIONS-20, O2 SAT-100%, BP-113/63. BELONGINGS BROUGHT TO UNIT WITH PATIENT. WILL CONTINUE TO MONITOR
--- NOTE | 2021-09-08 19:40 | NUR ---
RN CLOSING NOTES PATIENT REMAINS IN STABLE CONDITION THROUGHOUT SHIFT. BREATHING EVEN AND UNLABORED, NO SOB OR ANY ACUTE DISTRESS NOTED AT THE TIME. REMAIN AFEBRILE. ON NASAL CANULA @ 4 LPM WITH SATURATION OF 100%. ALL DUE MEDS GIVEN ORDERED. KEPT PATIENT CLEAN, DRY AND COMFORTABLE. ALL NEEDS ATTENDED. CHASE CATHETER IN PLACED AND DRAINING WELL BY GRAVITY. CHEST TUBE ON RIGHT LATERAL BODY INTACT, DRAINING WELL. ALL SAFETY MEASURE PROVIDED, HOB ELEVATED BED ON LOWEST POSITION, LOCKED, WITH SIDE RAILS UP. CALL LIGHT WITHIN REACH OF PATIENT. ENDORSED TO ONCOMING NURSE FOR CONTINUITY OF CARE.
--- NOTE | 2021-09-08 19:50 | NUR ---
RN NOTE PATIENT ALERT AND ORIENTED X1-2, FORGETFUL. ON O2 4L VIA NASAL CANNULA, NO S/S OF ANY RESPIRATORY DISTRESS. CHASE DRAINING URINE VIA GRAVITY. IV ACCESS MITCH MIDLINE, PATENT AND INTACT. BED LOCKED AND IN LOWEST POSITION. CALL LIGHT WITHIN REACH. ALL NEEDS ANTICIPATED.
[2021-09-08] MEDS ORDERED: BROMOCRIPTINE MESYLATE (2.5MG) 2.5 MG TABLET ONE (22:26)
[2021-09-08] MEDS: BROMOCRIPTINE MESYLATE (2.5MG) 2.5 MG TABLET PO SCH (22:36)
[2021-09-09 04:00] VITALS: BP 103/64
--- NOTE | 2021-09-09 07:07 | NUR ---
RN NOTE PATIENT RESTING IN BED. ON O2 4L VIA NASAL CANNULA, NO S/S OF ANY RESPIRATORY DISTRESS. CHASE CATHETER OUPUT 200CC YELLOW URINE. IV ACCESS MITCH MIDLINE, PATENT AND INTACT. DUE MEDS GIVEN ORDERED. KEPT CLEAN AND DRY. BED LOCKED AND IN LOWEST POSITION. CALL LIGHT WITHIN REACH. WILL ENDORSE TO AM SHIFT.
--- NOTE | 2021-09-09 07:54 | NUR ---
RN OPENING NOTES RECEIVED PATIENT IN BED, AWAKE, ALERT/ORIENTEDX2, WITH PERIODS OF CONFUSION. BREATHING EVEN AND UNLABORED, NO SOB OR ANY ACUTE DISTRESS NOTED AT THE TIME. REMAIN AFEBRILE. ON NASAL CANULA @ 4 LPM. NOTED WITH MITCH MIDLINE, INTACT, PATENT AND FLUSHED WITH NS. NO SIGNS OF INFILTRATION. CHASE CATHETER IN PLACED AND DRAINING WELL BY GRAVITY. WITH CHEST TUBE IN RIGHT LATERAL SIDE OF BODY, INTACT AND DRAINING. ALL SAFETY MEASURE PROVIDED, HOB ELEVATED BED ON LOWEST POSITION, LOCKED, WITH SIDE RAILS UP. CALL LIGHT WITHIN REACH OF PATIENT.
[2021-09-09 07:56] LABS: CALCIUM, SERUM 8.8 mg/dL (8.5-10.1); CREATININE 0.8 mg/dL (0.6-1.3); PHOSPHORUS 3.7 mg/dL (2.5-4.9); POTASSIUM 3.8 mmol/L (3.5-5.1)
[2021-09-09 08:19] LABS: BASOPHILS % (AUTO) 0.3 % (0.0-2.0); EOSINOPHILS % (AUTO) 5.8 % (0.0-6.0); HEMATOCRIT 36 % (33-45); HEMOGLOBIN 12.2 g/dL (11.5-14.8); LYMPHOCYTES % (AUTO) 13.4 % (20.0-44.0); MEAN CORPUSCULAR HGB CONC 34 g/dl (31.0-36.0); MEAN CORPUSCULAR VOLUME 95 fL (82-100); MONOCYTES # (AUTO) 0.9 K/uL (0.1-1.30); MONOCYTES % (AUTO) 11.9 % (2.0-12.0); NEUTROPHILS # (AUTO) 5.1 K/uL (1.8-8.9); NEUTROPHILS % (AUTO) 68.6 % (43.0-81.0); PLATELET COUNT (AUTO) 141 K/uL (150-450); RED BLOOD CELL COUNT(AUTO) 3.79 MIL/uL (4.0-5.2); WHITE BLOOD COUNT (AUTO) 7.5 K/uL (4.3-11.0)
[2021-09-09] MEDS: LORATADINE 10 MG TABLET PO SCH (10:15)
[2021-09-09] MEDS: FAMOTIDINE (20 MG) 20 MG TABLET PO SCH (10:15)
[2021-09-09] MEDS: NAPHAZOLINE HCL/PHENIR MAL 15 ML BOTTLE EACHEYE SCH ×2 (10:15→16:22)
[2021-09-09] MEDS: ENSURE ENLIVE 237 ML LIQUID (VANILLA) PO SCH ×2 (10:15→16:22)
[2021-09-09] MEDS: LACTULOSE 10 G/15 ML UDC (PYXIS) PO SCH (10:15)
[2021-09-09] MEDS: SPIRONOLACTONE 25 MG TABLET PO SCH (10:15)
[2021-09-09] MEDS: RIVASTIGMINE TARTRATE 1.5 MG CAPSULE PO SCH ×2 (10:17→21:47)
[2021-09-09] MEDS: risperiDONE 0.25 MG TABLET PO SCH ×2 (10:17→21:21)
[2021-09-09 16:00] VITALS: BP 106/70
--- NOTE | 2021-09-09 19:55 | NUR ---
RN NOTE RECEIVED PATIENT IN BED, AWAKE, AND RESPONSIVE. ABLE TO VERBALIZE NAME ONLY. CONFUSED. BREATHING EVEN AND UNLABORED. TOLERATING ROOM AIR. NO SOB NOTED. HOB ELEVATED 35 DEGREES. DENIES CHEST PAIN. SKIN WARM AND DRY. NOTED WITH LEFT UPPER ARM MIDLINE, FLUSHES WELL NO INFILTRATION, NO IVF RUNNING. NOTED WITH RIGHT MID-AXILLARY CHEST TUBE CATHETER, DRAINAGE SYSTEM INTACT. NOTED WITH INTERMITTENT BUBBLING IN WATER CHAMBER 2+. NOTED WITH 70 ML OF DRAINAGE, THICK WHITE/BROWNISH. NOTED WITH CHASE CATHETER, INTACT, NO HEMATURIA. ON BILATERAL SOFT WRIST RESTRAINTS. RESTRAINTS RELEASED FOR ROM. FLUIDS PROVIDED. BED LOW, IN LOCKED POSITION, CALL LIGHT WITHIN REACH.
[2021-09-09 20:00] VITALS: BP 114/60
[2021-09-09] MEDS: BROMOCRIPTINE MESYLATE (2.5MG) 2.5 MG TABLET PO SCH (21:21)
[2021-09-10 04:00] VITALS: BP 105/65
[2021-09-10 06:29] LABS: BASOPHILS % (AUTO) 0.3 % (0.0-2.0); EOSINOPHILS % (AUTO) 5.2 % (0.0-6.0); HEMATOCRIT 37 % (33-45); HEMOGLOBIN 12.5 g/dL (11.5-14.8); LYMPHOCYTES % (AUTO) 12.9 % (20.0-44.0); MEAN CORPUSCULAR HGB CONC 34 g/dl (31.0-36.0); MEAN CORPUSCULAR VOLUME 94 fL (82-100); MONOCYTES # (AUTO) 0.7 K/uL (0.1-1.30); MONOCYTES % (AUTO) 9.1 % (2.0-12.0); NEUTROPHILS # (AUTO) 5.5 K/uL (1.8-8.9); NEUTROPHILS % (AUTO) 72.5 % (43.0-81.0); PLATELET COUNT (AUTO) 150 K/uL (150-450); RED BLOOD CELL COUNT(AUTO) 3.94 MIL/uL (4.0-5.2); WHITE BLOOD COUNT (AUTO) 7.6 K/uL (4.3-11.0)
[2021-09-10 06:56] LABS: CALCIUM, SERUM 8.5 mg/dL (8.5-10.1); CREATININE 0.9 mg/dL (0.6-1.3); POTASSIUM 3.5 mmol/L (3.5-5.1)
--- NOTE | 2021-09-10 07:30 | NUR ---
RN OPENING NOTE RECEIVED PATIENT IN BED, ASLEEP. ABLE TO VERBALIZE NAME, CONFUSED PER INFORMATION RESOURCES MANAGER. BREATHING EVEN AND UNLABORED. TOLERATING ROOM AIR. NO SOB NOTED. HOB ELEVATED 35 DEGREES. DENIES CHEST PAIN. SKIN WARM AND DRY. NOTED WITH LEFT UPPER ARM MIDLINE, FLUSHES WELL NO INFILTRATION, NO IVF RUNNING. NOTED WITH RIGHT MID-AXILLARY CHEST TUBE CATHETER, DRAINAGE SYSTEM INTACT. NOTED WITH INTERMITTENT BUBBLING IN WATER CHAMBER 2+. NOTED WITH 70 ML OF DRAINAGE, THICK WHITE/BROWNISH. NOTED WITH CHASE CATHETER, INTACT, NO HEMATURIA. ON BILATERAL SOFT WRIST RESTRAINTS. WILL CHECK PERIPHERAL CIRCULATION Q2H. ALL SAFETY MEASURES NOTED AND ACCOUNTED FOR. BED IN LOWEST POSITION AND WHEELS LOCKED. CALL LIGHT WITHIN REACH. WILL CONTINUE TO MONITOR.
[2021-09-10] MEDS: SPIRONOLACTONE 25 MG TABLET PO SCH (08:17)
[2021-09-10] MEDS: LACTULOSE 10 G/15 ML UDC (PYXIS) PO SCH (08:17)
[2021-09-10] MEDS: FAMOTIDINE (20 MG) 20 MG TABLET PO SCH (08:18)
[2021-09-10] MEDS: LORATADINE 10 MG TABLET PO SCH (08:18)
[2021-09-10] MEDS: ENSURE ENLIVE 237 ML LIQUID (VANILLA) PO SCH ×2 (08:18→16:41)
[2021-09-10] MEDS: NAPHAZOLINE HCL/PHENIR MAL 15 ML BOTTLE EACHEYE SCH ×2 (08:22→16:41)
[2021-09-10] MEDS: risperiDONE 0.25 MG TABLET PO SCH ×2 (09:06→21:24)
[2021-09-10] MEDS: RIVASTIGMINE TARTRATE 1.5 MG CAPSULE PO SCH ×2 (09:06→21:24)
[2021-09-10 12:00] VITALS: BP 123/71
--- NOTE | 2021-09-10 18:51 | NUR ---
RN CLOSING NOTE PATIENT REMAINED STABLE THROUGHOUT SHIFT.PATIENT IN BED RESTING CURRENTLY. ABLE TO VERBALIZE NAME BUT REMAINS CONFUSED. BREATHING EVEN AND UNLABORED. TOLERATING ROOM AIR. NO SOB NOTED. HOB ELEVATED 35 DEGREES. DENIES CHEST PAIN. SKIN WARM AND DRY. NOTED WITH LEFT UPPER ARM MIDLINE, FLUSHES WELL NO INFILTRATION, NO IVF RUNNING. NOTED WITH RIGHT MID-AXILLARY CHEST TUBE CATHETER, DRAINAGE SYSTEM INTACT. NOTED WITH INTERMITTENT BUBBLING IN WATER CHAMBER 2+. NOTED WITH 70 ML OF DRAINAGE, THICK WHITE/BROWNISH. REMAINED AT 70ML WITH INTERMITTENT BUBBLING THROUGHOUT SHIFT. NOTED WITH CHASE CATHETER, INTACT, NO HEMATURIA. ON BILATERAL SOFT WRIST RESTRAINTS. WILL CHECK PERIPHERAL CIRCULATION Q2H. ALL SAFETY MEASURES NOTED AND ACCOUNTED FOR. BED IN LOWEST POSITION AND WHEELS LOCKED. CALL LIGHT WITHIN REACH. WILL ENDORSE TO TEXTURE ARTIST RN.
[2021-09-10 20:00] VITALS: BP 102/62
[2021-09-10] MEDS: BROMOCRIPTINE MESYLATE (2.5MG) 2.5 MG TABLET PO SCH (21:24)
[2021-09-11 04:00] VITALS: BP 111/68
--- NOTE | 2021-09-11 05:38 | NUR ---
RN notes Resting comfortably in bed with no distress noted. breathing even and unlabored. On room air tolerating well. Alert and oriented. Verbally able to communicate need. No complaint of pain or discomfort. Vital signs wnl. No significant change of condition. Kept clean and dry. Will endorse to next shift for continuity of care.
[2021-09-11 06:48] LABS: CALCIUM, SERUM 8.3 mg/dL (8.5-10.1); CREATININE 0.9 mg/dL (0.6-1.3); POTASSIUM 4.1 mmol/L (3.5-5.1)
[2021-09-11 06:49] LABS: BASOPHILS % (AUTO) 0.5 % (0.0-2.0); EOSINOPHILS % (AUTO) 5.6 % (0.0-6.0); HEMATOCRIT 37 % (33-45); HEMOGLOBIN 12.4 g/dL (11.5-14.8); LYMPHOCYTES # (AUTO) 1.1 K/uL (0.8-4.8); LYMPHOCYTES % (AUTO) 15.9 % (20.0-44.0); MEAN CORPUSCULAR HGB CONC 34 g/dl (31.0-36.0); MEAN CORPUSCULAR VOLUME 94 fL (82-100); MONOCYTES # (AUTO) 0.6 K/uL (0.1-1.30); MONOCYTES % (AUTO) 8.6 % (2.0-12.0); NEUTROPHILS # (AUTO) 4.7 K/uL (1.8-8.9); NEUTROPHILS % (AUTO) 69.4 % (43.0-81.0); PLATELET COUNT (AUTO) 156 K/uL (150-450); RED BLOOD CELL COUNT(AUTO) 3.87 MIL/uL (4.0-5.2); WHITE BLOOD COUNT (AUTO) 6.8 K/uL (4.3-11.0)
--- NOTE | 2021-09-11 07:36 | NUR ---
RN OPENING NOTES Patient seen comfortably lying in bed, no apparent distress noted, respirations even and unlabored, no shortness of breath, no grimacing. Call light left within reach, safety precautions in place, brakes locked, side rails up X 2, will monitor closely for any changes.
[2021-09-11 08:00] VITALS: BP 117/66
[2021-09-11] MEDS: SPIRONOLACTONE 25 MG TABLET PO SCH (08:16)
[2021-09-11] MEDS: LACTULOSE 10 G/15 ML UDC (PYXIS) PO SCH (08:16)
[2021-09-11] MEDS: LORATADINE 10 MG TABLET PO SCH (08:16)
[2021-09-11] MEDS: FAMOTIDINE (20 MG) 20 MG TABLET PO SCH (08:16)
[2021-09-11] MEDS: ENSURE ENLIVE 237 ML LIQUID (VANILLA) PO SCH ×2 (08:17→17:27)
--- NOTE | 2021-09-11 08:45 | NUR ---
RECEIVED A PHONE CALL FORM DR. BAE, AND HE STATED TO CHANGE CHEST TUBE TO WATER SEAL, TURN OFF SUCTION AND REPEAT CHEST XRAY IN 1 HOUR, PHONE ORDERS READ BACK AND VERIFIED, ORDERS NOTED AND CARRIED OUT, CHARGE NURSE MADE AWARE.
[2021-09-11] MEDS: risperiDONE 0.25 MG TABLET PO SCH ×2 (10:03→21:12)
[2021-09-11] MEDS: RIVASTIGMINE TARTRATE 1.5 MG CAPSULE PO SCH ×2 (10:03→21:12)
--- NOTE | 2021-09-11 11:41 | NUR ---
09/10/21: 1115AM TELEPHONE ORDER: PER CATALINO SAEZ, RESUME CONTINUOUS SUCTION FOR CHEST TUBE ORDERS READ BACK AND VERIFIED, NO APPARENT DISTRESS NOTED WITH PATIENT, NO SHORTNESS OF BREATH, NO RESPIRATORY DISTRESS, 02 SAT 100% ROOM AIR, WILL MONITOR CLOSELY FOR ANY CHANGES.
--- NOTE | 2021-09-11 11:45 | NUR ---
Patient seen by Dr. Hollis ([facility]), and stated that per thoracic surgeon patient's chest tube needs to be replaced, called Radiology (spoke to [facility]) and he stated that the CT scan that they use to guide the procedure is not working at this time, and [place]'s CT scan machine is working. Dr. Hollis made aware oif the situation and stated to transfer patient to [facility]. Charge nurse, hospitalist and field marketing manager made aware of the situation. Called sister Alla ([phone]) to obtain consent for the procedure and transfer to [facility], consent obtained and witnessed by another RN, consent filed in chart.
[2021-09-11 12:00] VITALS: BP 114/65
--- NOTE | 2021-09-11 14:28 | NUR ---
Patient has an order for right pigtail pleural catheter replacement (computed tomography guided), consent for the procedure obtained from Alla (sister, phone: [phone]), health teaching provided, verbalized understanding of the procedure, consents cosigned by another RN and are filed in patients chart.
[2021-09-11] MEDS ORDERED: FENTANYL PF 250MCG/5ML AMPUL IV PRN (14:30)
[2021-09-11] MEDS ORDERED: MIDAZOLAM HCL 2 MG/2ML VIAL IV PRN (14:30)
[2021-09-11] MEDS ORDERED: FLUMAZENIL 0.5 MG VIAL IV PRN (14:30)
[2021-09-11] MEDS ORDERED: NALOXONE PREFILLED SYRINGE 2 MG/2 ML SYRINGE IV PRN (14:30)
[2021-09-11] MEDS ORDERED: LIDOCAINE 1% INJ 50 ML MDV IJ ONE (15:57)
[2021-09-11 16:00] VITALS: BP 115/74
--- NOTE | 2021-09-11 18:30 | NUR ---
RN CLOSING NOTES Patient in bed, respirations even and unlabored, no shortness of breath, remained afebrile during shift. All due medications given per MD order, tolerating well. Patient S/P right pigtail pleural catheter replacement (CT guided), patient tolerated procedure well, site covered with intact and dry dressings, no s/s of bleeding, no swelling, no drainage noted. Patient has an order for soft wrist restraint for safety, visual check rendered every 15 minutes, patient repositioned frequently, no s/s of circulation impairment noted at this time, skin warm to touch, no pallor or cyanosis noted. All needs anticipated, kept clean and dry, aspiration precautions observed at all times, frequent turning and repositioning done, safety precautions in place, frequent visual checks done, brakes locked, padded side rails up X 2, call light left within reach, will endorse to next shift for continuity of care.
[2021-09-11] MEDS ORDERED: FENTANYL PF 100MCG/2ML AMPUL IV ONE (18:42)
[2021-09-11] MEDS ORDERED: MIDAZOLAM HCL 2 MG/2ML VIAL IV ONE (18:42)
--- NOTE | 2021-09-11 19:10 | NUR ---
RN NOTES RECEIVED REPORT FROM MORNING NURSE. PATIENT IN BED A/O X1 WITH CONFUSION. WITH BILATERAL SOFT RESTRAINTS IN PLACE. PATIENT WITH R CW PIGTAIL PLEURAL CATHETER (CT GUIDED) CONNECTED TO CONTINUOS SUCTION INTACT. WITH L UA MIDLINE PATENT FLUSHES WELL. WITH CHASE CATHETER CONNECTED TO URINE BAG PATENT DRAINING YELLOWISH URINE OUTPUT. VITAL SIGNS TAKEN AND RECORDED. ALL SAFETY MEASURES IN PLACE AT ALL TIMES. HOB ELEVATED. BED ON LOWEST POSITION AND LOCKED. WILL CLOSELY MONITOR THE PATIENT
[2021-09-11 20:00] VITALS: BP 104/72
[2021-09-11] MEDS: BROMOCRIPTINE MESYLATE (2.5MG) 2.5 MG TABLET PO SCH (21:12)
[2021-09-11] MEDS: ZOLPIDEM TARTRATE 5 MG TABLET PO PRN (23:02)
[2021-09-12] MEDS: ZOLPIDEM TARTRATE 5 MG TABLET PO PRN (00:35)
[2021-09-12 04:00] VITALS: BP 116/68
[2021-09-12] MEDS: ALENDRONATE 70 MG TABLET PO SCH (06:12)
--- NOTE | 2021-09-12 06:40 | NUR ---
RN NOTES PATIENT IN BED REMAINS IN STABLE CONDITION. PATIENT A/O X1 CONFUSED WITH R CHEST WALL PIGTAIL PLEURAL CATHETER CONNECTED TO CONTINUOS SUCTION INTACT PATENT. WITH BILATERAL SOFT RESTRAINTS IN PLACE AT ALL TIMES. WITH MITCH MIDLINE PATENT FLUSHES WELL. CHASE PATENT.ALL DUE MEDS GIVEN ORDERED. ALL NEEDS ATTENDED. FREQUENT VISUAL MONITORING RENDERED.
--- NOTE | 2021-09-12 07:45 | NUR ---
MS RN OPENING NOTES RECEIVED PATIENT IN BED, ASLEEP. PATIENT ON ROOM AIR; BREATHING EVEN AND UNLABORED. NOTED WITH BILATERAL SOFT WRIST RESTRAINTS IN PLACE. PATIENT WITH R CW PIGTAIL PLEURAL CATHETER (CT GUIDED) CONNECTED TO CONTINUOS SUCTION INTACT. MITCH MIDLINE PATENT FLUSHES WELL. CHASE CATHETER CONNECTED TO URINE BAG PATENT DRAINING YELLOWISH URINE. ALL SAFETY MEASURES IN PLACE AT ALL TIMES. HOB ELEVATED. BED ON LOWEST POSITION AND LOCKED, RAILS UP X2, CALL LIGHT WITHIN REACH. WILL CONTINUE TO MONITOR PATIENT.
[2021-09-12] MEDS: SPIRONOLACTONE 25 MG TABLET PO SCH (08:22)
[2021-09-12] MEDS: LORATADINE 10 MG TABLET PO SCH (08:22)
[2021-09-12] MEDS: LACTULOSE 10 G/15 ML UDC (PYXIS) PO SCH (08:22)
[2021-09-12] MEDS: ENSURE ENLIVE 237 ML LIQUID (VANILLA) PO SCH ×2 (08:22→16:58)
[2021-09-12] MEDS: FAMOTIDINE (20 MG) 20 MG TABLET PO SCH (08:23)
[2021-09-12] MEDS: risperiDONE 0.25 MG TABLET PO SCH ×2 (09:47→21:38)
[2021-09-12] MEDS: RIVASTIGMINE TARTRATE 1.5 MG CAPSULE PO SCH ×2 (09:48→21:37)
[2021-09-12 12:23] VITALS: BP 116/68
--- NOTE | 2021-09-12 18:51 | NUR ---
MS RN CLOSING NOTES PATIENT REMAINS IN BED, AWAKE, A/O X1, CONFUSED. PATIENT ON ROOM AIR; BREATHING EVEN AND UNLABORED. NOTED WITH BILATERAL SOFT WRIST RESTRAINTS IN PLACE. PATIENT WITH R CW PIGTAIL PLEURAL CATHETER (CT GUIDED) CONNECTED TO CONTINUOS SUCTION INTACT WITH 10 MLS OUTPUT. MITCH MIDLINE PATENT FLUSHES WELL. CHASE CATHETER CONNECTED TO URINE BAG PATENT DRAINING YELLOWISH URINE WITH 500 MLS OUTPUT. ALL SAFETY MEASURES IN PLACE AT ALL TIMES. HOB ELEVATED. BED ON LOWEST POSITION AND LOCKED, RAILS UP X2, CALL LIGHT WITHIN REACH. WILL ENDORSE TO CABIN MAN NURSE FOR KELLY.
[2021-09-12 20:00] VITALS: BP 127/67
--- NOTE | 2021-09-12 20:09 | NUR ---
RN NOTE RECEIVED PT IN BED, ALERT AND ORIENTED X1, TALKING TO SELF. NOT SIGNS OF DISTRESS NOTED. 100% O2 SAT ON ROOM AIR. PT WITH R CHEST TUBE CONNECTED TO SUCTION, WITH SEROUS DRAINAGE, SITE CLEAN AND DRY. DENIES ANY PAIN AT THIS TIME. PT WITH BILATERAL WRIST SOFT RESTRAINTS, WITH GOOD CIRCULATION. CHASE CATH IN PLACE, DRAINING CLEAR URINE OUTPUT. ALL SAFETY MEASURES IN PLACE. WILL CONTINUE TO MONITOR.
[2021-09-12] MEDS: BROMOCRIPTINE MESYLATE (2.5MG) 2.5 MG TABLET PO SCH (21:38)
[2021-09-13 04:00] VITALS: BP_SYST 120; BP_SYST 138; BP_DIAS 68; BP_DIAS 71
--- NOTE | 2021-09-13 06:59 | NUR ---
RN NOTE PT SLEEPING, AROUSES EASILY. PT CONFUSED AND FORGETFUL BASELINE. REDIRECT TO REALITY. ALL NEEDS WERE ATTENDED. CHEST TUBE REMAIN IN PLACE, WITH ABOUT 5ML SEROUS DRAINAGE. DRESSING CLEAN DRY AND INTACT. NO SOB NOTED. 98% O2SAT ON RA. CHASE DRAINING WELL. CONTINUE ON SOFT WRIST RESTRAINTS, NO SKIN BREAKDOWN NOTED. WITH GOOD CIRCULATION. KEPT CLEAN, DRY AND COMFORTABLE IN BED. WILL ENDORSE TO NEXT SHIFT NURSE FOR KELLY.
--- NOTE | 2021-09-13 07:15 | NUR ---
RN OPENING NOTE RECEIVED PT IN BED, A/O X1 X1, CONFUSED. NURSE ORIENTED PT TO TIME AND PLACE. NO S/S OF DISTRESS NOTED. 100% O2 SAT ON ROOM AIR. PT WITH R CHEST TUBE CONNECTED TO SUCTION, WITH SEROUS DRAINAGE, SITE CLEAN AND DRY. DENIES ANY PAIN AT THIS TIME. PT WITH BILATERAL WRIST SOFT RESTRAINTS, WITH PULSES PALPABLE AND SKIN COLOR IS WNL. CHASE CATH IN PLACE, DRAINING CLEAR URINE OUTPUT. ALL SAFETY MEASURES IN PLACE. WILL CONTINUE TO MONITOR.
[2021-09-13] MEDS: ENSURE ENLIVE 237 ML LIQUID (VANILLA) PO SCH ×2 (08:25→17:24)
[2021-09-13] MEDS: SPIRONOLACTONE 25 MG TABLET PO SCH (09:36)
[2021-09-13] MEDS: risperiDONE 0.25 MG TABLET PO SCH ×2 (09:36→21:14)
[2021-09-13] MEDS: FAMOTIDINE (20 MG) 20 MG TABLET PO SCH (09:36)
[2021-09-13] MEDS: LORATADINE 10 MG TABLET PO SCH (09:36)
[2021-09-13] MEDS: RIVASTIGMINE TARTRATE 1.5 MG CAPSULE PO SCH ×2 (09:36→21:14)
[2021-09-13] MEDS: LACTULOSE 10 G/15 ML UDC (PYXIS) PO SCH (09:37)
[2021-09-13 12:00] VITALS: BP 125/70
--- NOTE | 2021-09-13 18:44 | NUR ---
RN CLOSING NOTES PATIENT REMAINED STABLE THROUGHOUT THE SHIFT. NO SIGNIFICANT CHANGES IN LOC, OR S/S OF CHEST DISCOMFORT. CHEST TUBE STILL PRESENT CONNECTED TO SUCTION, BLEEDING NOTED AND DRESSING INTACT. NO REPORTS OF SOB AND BREATHING EXPANSION IS EQUAL. PATIENT STILL ON ROOM AIR. ALL MEDICATIONS ADMINISTERED ORDERED. SAFETY MEASURES STILL IN PLACE. BED IN LOWEST POSITION AND LOCKED, TWO SIDE RAILS ARE UP. CALL LIGHT IS WITHIN REACH. WILL ENDORSE TO ONCOMING SHIFT FOR KELLY.
[2021-09-13 20:00] VITALS: BP 107/63
[2021-09-13] MEDS: BROMOCRIPTINE MESYLATE (2.5MG) 2.5 MG TABLET PO SCH (21:14)
[2021-09-14 04:00] VITALS: BP 138/71
[2021-09-14 06:26] LABS: BASOPHILS % (AUTO) 0.3 % (0.0-2.0); EOSINOPHILS % (AUTO) 6.8 % (0.0-6.0); HEMATOCRIT 39 % (33-45); HEMOGLOBIN 13.5 g/dL (11.5-14.8); LYMPHOCYTES # (AUTO) 1.2 K/uL (0.8-4.8); LYMPHOCYTES % (AUTO) 13.3 % (20.0-44.0); MEAN CORPUSCULAR HGB CONC 34 g/dl (31.0-36.0); MEAN CORPUSCULAR VOLUME 94 fL (82-100); MONOCYTES # (AUTO) 0.7 K/uL (0.1-1.30); MONOCYTES % (AUTO) 7.8 % (2.0-12.0); NEUTROPHILS # (AUTO) 6.2 K/uL (1.8-8.9); NEUTROPHILS % (AUTO) 71.8 % (43.0-81.0); PLATELET COUNT (AUTO) 201 K/uL (150-450); RED BLOOD CELL COUNT(AUTO) 4.21 MIL/uL (4.0-5.2); WHITE BLOOD COUNT (AUTO) 8.7 K/uL (4.3-11.0)
--- NOTE | 2021-09-14 06:59 | NUR ---
RN CLOSING NOTE, PATIENT IN BED, NO SOB/ACUTE DISTRESS NOTED, AT ROOM AIR, TOLERATED WELL, CHEST TUBE IN RCW CONNECTED TO SUCTION, MINIMAL DRAINAGE NOTED, NSR IN TELE MONITOR, ON BILATERAL SOFT WRIST RESTRAINS, FREQUENT SKIN CHECKS DONE, NO NO CIRCULATION COMPROMISED, NO ABNORMALITY NOTED AT SITE, F/C IN PLACED WITH GOOD URINARY OUTPUT, NO SIGNIFICANT CHANGE IN CONDITION DURING THE NIGHT, ALL SAFETY MEASURES IMPLEMENTED, BED LOCKED AND LOWEST POSITION, SIDE RAILS UP, CALL LIGHT WITHIN REACH, PATIENT KEPT DRY AND CLEAN, WILL ENDORSE CONTINUITY OF CARE TO ONCOMING NURSE.
[2021-09-14 07:11] LABS: CALCIUM, SERUM 9.2 mg/dL (8.5-10.1); CREATININE 1.2 mg/dL (0.6-1.3)
--- NOTE | 2021-09-14 07:58 | NUR ---
RN OPENING NOTE RECEIVED PT IN BED, A/O X1, CONFUSED. NURSE ORIENTED PT TO TIME AND PLACE. NO S/S OF DISTRESS NOTED. 100% O2 SAT ON ROOM AIR. PT WITH R CHEST TUBE CONNECTED TO SUCTION, WITH SEROUS DRAINAGE, SITE CLEAN AND DRY. DENIES ANY PAIN AT THIS TIME. PT WITH BILATERAL WRIST SOFT RESTRAINTS, WITH PULSES PALPABLE AND SKIN COLOR IS WNL. CHASE CATH IN PLACE, DRAINING CLEAR URINE OUTPUT. ALL SAFETY MEASURES IN PLACE. WILL CONTINUE TO MONITOR.
--- NOTE | 2021-09-14 09:16 | NUR ---
ORDERS DR. BAE ORDERED TO TURN CHEST TUBE SUCTION OFF AND KEEP WATER SEAL AND ORDERED CXR. NURSE TURNED OFF SUCTION.
[2021-09-14] MEDS: risperiDONE 0.25 MG TABLET PO SCH ×2 (09:34→22:41)
[2021-09-14] MEDS: RIVASTIGMINE TARTRATE 1.5 MG CAPSULE PO SCH ×2 (09:34→22:41)
[2021-09-14] MEDS: SPIRONOLACTONE 25 MG TABLET PO SCH (09:34)
[2021-09-14] MEDS: LACTULOSE 10 G/15 ML UDC (PYXIS) PO SCH (09:35)
[2021-09-14] MEDS: FAMOTIDINE (20 MG) 20 MG TABLET PO SCH (09:35)
[2021-09-14] MEDS: LORATADINE 10 MG TABLET PO SCH (09:35)
[2021-09-14] MEDS: ENSURE ENLIVE 237 ML LIQUID (VANILLA) PO SCH ×2 (09:36→17:49)
[2021-09-14 12:00] VITALS: BP 116/69
[2021-09-14] MEDS: TETRAHYDROZOLINE HCL BOTTLE EACHEYE SCH (17:49)
[2021-09-14 20:00] VITALS: BP 127/69
[2021-09-14] MEDS: BROMOCRIPTINE MESYLATE (2.5MG) 2.5 MG TABLET PO SCH (22:41)
[2021-09-15 04:00] VITALS: BP 112/83
--- NOTE | 2021-09-15 07:30 | NUR ---
RN OPENING NOTES RECEIVED PATIENT ASLEEP IN BED, NOT IN DISTRESS, WITH 02@ 2LPM SATING 99%, RIGHT PIGTAIL CATHETER CONNECTED TO CHEST TUBE INTACT. IV SITE MITCH MIDLINE PATENT AND INTACT. WITH BILATERAL SOFT RESTRAINT IN PLACE. FC PATENT DRAINING TO YELLOW COLORED URINE. BED TO LOWEST POSITION AND LOCKED. CALL LIGHT WITHIN REACH.
--- NOTE | 2021-09-15 07:30 | NUR ---
RN NOTE CRITICAL VALUE OF CO2 40 COMMUNICATED WITH HAILY MATA
--- NOTE | 2021-09-15 07:51 | NUR ---
RN CLOSING NOTE PATIENT SLEEPING IN BED. PLAN OF CARE ENDORSED TO AM NURSE.
[2021-09-15] MEDS: ENSURE ENLIVE 237 ML LIQUID (VANILLA) PO SCH ×2 (09:22→16:54)
[2021-09-15] MEDS: SPIRONOLACTONE 25 MG TABLET PO SCH (09:23)
[2021-09-15] MEDS: TETRAHYDROZOLINE HCL BOTTLE EACHEYE SCH ×2 (09:23→16:53)
[2021-09-15] MEDS: FAMOTIDINE (20 MG) 20 MG TABLET PO SCH (09:23)
[2021-09-15] MEDS: RIVASTIGMINE TARTRATE 1.5 MG CAPSULE PO SCH ×2 (09:23→21:39)
[2021-09-15] MEDS: LORATADINE 10 MG TABLET PO SCH (09:23)
[2021-09-15] MEDS: risperiDONE 0.25 MG TABLET PO SCH ×2 (09:24→21:39)
[2021-09-15] MEDS: LACTULOSE 10 G/15 ML UDC (PYXIS) PO SCH (09:25)
--- NOTE | 2021-09-15 11:40 | NUR ---
RN NOTES CONTINUOUS SUCTION RESUMED FOR CHEST TUBE PER DR. BAE. CHARGE NURSE JEWEL MADE AWARE
--- NOTE | 2021-09-15 18:47 | NUR ---
RN CLOSING NOTES PATIENT NOT IN DISTRESS. NO COMPLAINTS OF PAIN NOTED. NEEDS ATTENDED. CHEST TUBE TO CONTINUOUS SUCTION PER DR. BAE. BED TO LOWEST POSITION AND LOCKED. KEPT HOB ELEVATED. NEEDS ATTENDED. WILL ENDORSE TO PRODUCTION COOK NURSE ON DUTY
--- NOTE | 2021-09-15 19:20 | NUR ---
RN NOTE RECEIVED PATIENT IN BED RESTING ALERT ORIENTED X1 ON ROOM AIR O2:96% IV SITE IS ON LEFT UPPER ARM MIDLINE INTACT PATENT,RIGHT CHEST TUBE IN PLACE,CHASE IN PLACE,URINE DRAINING YELLOW/CLEAR BY GRAVITY,SOFT BILATERAL WRIST RESTRAIN IN PLACE WILL CHECK EVERY 15 MINS FOR CIRCULATION AND SKIN BREAKDOWN,SAFETY MEASURE IMPLEMENT,HEAD OF THE BED ELEVATED,CALL LIGHT WITHIN REACH CONTINUE TO MONITOR.
[2021-09-15 20:00] VITALS: BP 124/56
[2021-09-15] MEDS: BROMOCRIPTINE MESYLATE (2.5MG) 2.5 MG TABLET PO SCH (21:39)
[2021-09-16 04:00] VITALS: BP 141/66
--- NOTE | 2021-09-16 06:48 | NUR ---
RN NOTE PATIENT REMAINS ON ALERT ORIENTED X1 VERBALLY RESPONSIVE ON ROOM AIR O2:96% NO SOB NOT ACUTE DISTRESS NOTED,SOFT BILATERAL WRIST RESTRAIN IN PLACE CHECKED EVERY 15 MIN NO SKIN BREAKDOWN,ALL DUE MEDS GIVEN MD ORDERED KEPT CLEAN AND DRY ALL THE TIME,ALL NEEDS MET ENDORSE NEXT COMING SHIFT FOR CONTINUATION OF CARE.
[2021-09-16] MEDS: ENSURE ENLIVE 237 ML LIQUID (VANILLA) PO SCH ×2 (08:00→16:34)
[2021-09-16] MEDS: RIVASTIGMINE TARTRATE 1.5 MG CAPSULE PO SCH ×2 (09:08→21:24)
[2021-09-16] MEDS: SPIRONOLACTONE 25 MG TABLET PO SCH (09:08)
[2021-09-16] MEDS: LACTULOSE 10 G/15 ML UDC (PYXIS) PO SCH (09:08)
[2021-09-16] MEDS: risperiDONE 0.25 MG TABLET PO SCH ×2 (09:08→21:24)
[2021-09-16] MEDS: FAMOTIDINE (20 MG) 20 MG TABLET PO SCH (09:08)
[2021-09-16] MEDS: LORATADINE 10 MG TABLET PO SCH (09:09)
[2021-09-16] MEDS: TETRAHYDROZOLINE HCL BOTTLE EACHEYE SCH ×2 (09:09→16:36)
--- NOTE | 2021-09-16 09:25 | NUR ---
clamped chest tube per dr. aguiar,awaits cxr in 2 hours ,primary rn aware.
--- NOTE | 2021-09-16 10:40 | NUR ---
RN NOTES PATIENT SEEN BY DR. HAY AND MADE AWARE OF PLAN OF CARE.
[2021-09-16 12:00] VITALS: BP 120/64
--- NOTE | 2021-09-16 12:00 | NUR ---
RN NOTES TRAINING MANAGER AT BEDSIDE FOR CHEST XRAY
--- NOTE | 2021-09-16 14:59 | NUR ---
RN NOTES DR. BAE AWARE OF CXR RESULT W/ ORDER TO CONTINUE CLAMPING CHEST TUBE AND CXR IN AM.
--- NOTE | 2021-09-16 18:26 | NUR ---
RN NOTES PATIENT FINISHED EATING DINNER. REFUSED TO DRINK THE ENSURE BUT ABLE TO EAT SERVED MEALS. NO ASPIRATION NOTED. DUE MEDS GIVEN TODAY. CHASE CATH INTACT AND PATENT, DRAINING YELLOW-COLORED URINE. RESTRAINTS RELEASED DURING THE SHIFT AND CIRCULATION CHECKED; STILL NOTED W/ EPISODES OF TRYING TO REMOVE LINES NECESSARY FOR MEDICAL MANAGEMENT OF CONDITION. EXPLAINED IMPORTANCE TO PATIENT AND VERBALIZED UNDERSTANDING, STILL W/ EPISODES OF CONFUSION. REORIENTATION PROVIDED APPLICABLE. SAFETY MEASURES MAINTAINED.
[2021-09-16 20:00] VITALS: BP 117/73
[2021-09-16] MEDS: ZOLPIDEM TARTRATE 5 MG TABLET PO PRN (21:24)
[2021-09-16] MEDS: BROMOCRIPTINE MESYLATE (2.5MG) 2.5 MG TABLET PO SCH (21:24)
[2021-09-17 04:00] VITALS: BP 113/63
--- NOTE | 2021-09-17 07:40 | NUR ---
ms rn received on bed, awake,very confused, trying to get up on bed. bilateral soft restrain on, chest tube connected to suction off / clamp at this time, denies pain at this time,no sob noted, 2liter o2,w/ adequate saturation,all needs attended.
[2021-09-17] MEDS: TETRAHYDROZOLINE HCL BOTTLE EACHEYE SCH ×2 (09:00→17:00)
[2021-09-17] MEDS: LORATADINE 10 MG TABLET PO SCH (09:50)
[2021-09-17] MEDS: LACTULOSE 10 G/15 ML UDC (PYXIS) PO SCH (09:50)
--- NOTE | 2021-09-17 09:50 | NUR ---
ms rn breakfast served,due meds given,tolerated well. compliant to her meds.
[2021-09-17] MEDS: SPIRONOLACTONE 25 MG TABLET PO SCH (09:51)
[2021-09-17] MEDS: RIVASTIGMINE TARTRATE 1.5 MG CAPSULE PO SCH ×2 (09:51→21:38)
[2021-09-17] MEDS: FAMOTIDINE (20 MG) 20 MG TABLET PO SCH (09:51)
[2021-09-17] MEDS: risperiDONE 0.25 MG TABLET PO SCH ×2 (09:51→21:38)
[2021-09-17] MEDS: ENSURE ENLIVE 237 ML LIQUID (VANILLA) PO SCH ×2 (09:52→17:20)
--- NOTE | 2021-09-17 10:00 | NUR ---
ms dorothea was seen by md w/ orders made and carried out.
[2021-09-17 12:00] VITALS: BP 106/59
--- NOTE | 2021-09-17 14:20 | NUR ---
ms rn was seen by dr. aguiar, chest tube removed, denies pain , site covered w/ gauze and tape , no bleeding noted, no s/s of infection.
--- NOTE | 2021-09-17 18:23 | NUR ---
ms rn on bed, still confused, ate dinner good, all needs attended.
[2021-09-17 20:00] VITALS: BP 124/69
--- NOTE | 2021-09-17 20:35 | NUR ---
RN NOTE RECEIVED CARE OF PATIENT WHILE PATIENT IN BED, A/O X1, ABLE TO RECALL NAME ONLY. PATIENT CONFUSED AND AGITATED. REORIENTED PATIENT, REPOSITIONED, AND USED RELAXATION TECHNIQUES. PATIENT NOW IN BED CALM WATCHING TV. PATIENT ON ROOM AIR, O2 SAT 98%, NO SOB NOTED, BREATHING EVEN AND UNLABORED. PATIENT IS POST CHEST TUBE REMOVAL, NO SIGNS OF COMPLICATIONS ON INCISION SITE. PATIENT WITH BILATERAL SOFT WRIST RESTRAINTS, NECESSARY PATIENT ATTEMPTS TO PULL IV LINE. PATIENT WITH IV ACCESS ON MITCH MIDLINE, PATENT AND FLUSHING WELL. NO SIGNIFICANT FINDINGS UPON INITIAL NURSING ASSESSMENTS. ALL SAFETY MEASURES IMPLEMENTED PER PROTOCOL. WILL CONTINUE TO MONITOR.
[2021-09-17] MEDS: BROMOCRIPTINE MESYLATE (2.5MG) 2.5 MG TABLET PO SCH (21:38)
[2021-09-17] MEDS: ZOLPIDEM TARTRATE 5 MG TABLET PO PRN (21:38)
[2021-09-18 04:00] VITALS: BP 112/66
--- NOTE | 2021-09-18 06:42 | NUR ---
RN CLOSING NOTES WILL ENDORSE CARE OF PATIENT WHILE PATIENT IN BED, SLEEPING, WAKES UP TO NAME. PATIENT A/O X1, CONFUSED, ABLE TO MAKE NEEDS KNOWN THROUGHOUT SHIFT. ALL NEEDS ATTENDED TO, ALL DUE MEDS GIVEN. NO SIGNIFICANT FINDINGS UPON ALL NURSING ASSESSMENTS. ON ROOM AIR, O2 SAT 97%, BREATHING EVEN AND UNLABORED. PATIENT WITH BILATERAL SOFT WRIST RESTRAINTS, VISUAL CHECK AND RELEASE OF RESTRAINTS DONE PER PROTOCOL, NO IMPAIRED CIRCULATION OR SKIN INTEGRITY. ALL SAFETY MEASURES IMPLEMENTED PER PROTOCOL. WILL ENDORSE TO AM NURSE FOR KELLY.
--- NOTE | 2021-09-18 07:30 | NUR ---
MS RN OPENING NOTES RECEIVED AWAKE ON BED AND A/O X1-2, CONFUSED AND EMOTIONAL. COMFORT MEASURES PROVIDED. ON ROOM AIR TOLERATING WELL. NO SOB NOTED. NOT IN DISTRESS. WITH NO COMPLAINTS OF PAIN OR DISCOMFORT AT THIS TIME. WITH IV ACCESS AT LEFT UPPER ARM MIDLINE SALINE LOCKED, PATENT AND INTACT. SAFETY MEASURES IN PLACED. CALL LIGHT WITHIN REACH. BED ON LOWEST LOCKED POSITION, SIDE RAILS UP X2. WILL CONTINUE TO MONITOR.
[2021-09-18] MEDS: LACTULOSE 10 G/15 ML UDC (PYXIS) PO SCH (09:28)
[2021-09-18] MEDS: FAMOTIDINE (20 MG) 20 MG TABLET PO SCH (09:28)
[2021-09-18] MEDS: SPIRONOLACTONE 25 MG TABLET PO SCH (09:28)
[2021-09-18] MEDS: LORATADINE 10 MG TABLET PO SCH (09:28)
[2021-09-18] MEDS: ENSURE ENLIVE 237 ML LIQUID (VANILLA) PO SCH (09:29)
[2021-09-18] MEDS: TETRAHYDROZOLINE HCL BOTTLE EACHEYE SCH (09:29)
[2021-09-18] MEDS: RIVASTIGMINE TARTRATE 1.5 MG CAPSULE PO SCH (09:49)
[2021-09-18] MEDS: risperiDONE 0.25 MG TABLET PO SCH (09:49)
[2021-09-18] MEDS ORDERED: RISP0.2515 PO (10:36)
[2021-09-18] MEDS ORDERED: RIVA1.5C13 PO (10:36)
[2021-09-18 12:00] VITALS: BP 108/72
--- NOTE | 2021-09-18 14:24 | NUR ---
MS IMMIGRATION OFFICER NOTES PATIENT WAS SEEN BY DR. HAY AND ORDERED PATIENT FOR DISCHARGE TO SNF. CALLED [facility] AND GAVE REPORT TO SUSANNA. DISCHARGE AND MEDICATION INSTRUCTIONS WAS PROVIDED TO THE FACILITY. ALL BELONGINGS ACCOUNTED FOR. NAME WRIST BAND AND IV LINE REMOVED. PATIENT WAS PICKED UP BY AMBULANCE PERSONNEL VIA GURNEY AND LEFT IN STABLE CONDITION. CHARGE NURSE AND MD ARE AWARE OF THE DISCHARGE.
== END 2021-09-18 14:24 | DRG 196 ==
LOC: ER 19:55 → MED 22:10 → ICU 09-04 20:35 → MEDSG1 09-08 16:04
PROVIDERS: ADMIT Nurse Practitioner Acute Care; ATTEND Internal Medicine
PROC: 0BDC4ZX Extraction of Right Upper Lung Lobe, Percutaneous Endoscopic Approach, Diagnostic (ICD-10-PCS; principal; 2021-09-04)
PROC: 0W9930Z Drainage of Right Pleural Cavity with Drainage Device, Percutaneous Approach (ICD-10-PCS; 2021-09-04)
PROC: 05H633Z Insertion of Infusion Device into Left Subclavian Vein, Percutaneous Approach (ICD-10-PCS; 2021-09-05)
PROC: B547ZZA Ultrasonography of Left Subclavian Vein, Guidance (ICD-10-PCS; 2021-09-05)
PROC: 0W9930Z Drainage of Right Pleural Cavity with Drainage Device, Percutaneous Approach (ICD-10-PCS; 2021-09-07)
PROC: 0B2QX0Z Change Drainage Device in Pleura, External Approach (ICD-10-PCS; 2021-09-11)
DX: J84.10 Pulmonary fibrosis, unspecified (principal); G93.41 Metabolic encephalopathy; J95.811 Postprocedural pneumothorax; N17.0 Acute kidney failure with tubular necrosis; D61.818 Other pancytopenia; F02.80 Dementia in other diseases classified elsewhere, unspecified severity, without behavioral disturbance, psychotic disturbance, mood disturbance, and anxiety; G20 Parkinson's disease; K21.9 Gastro-esophageal reflux disease without esophagitis; M81.0 Age-related osteoporosis without current pathological fracture; Z90.12 Acquired absence of left breast and nipple; Z85.3 Personal history of malignant neoplasm of breast; K74.60 Unspecified cirrhosis of liver; D69.59 Other secondary thrombocytopenia; E88.09 Other disorders of plasma-protein metabolism, not elsewhere classified; I10 Essential (primary) hypertension; F20.9 Schizophrenia, unspecified; J43.9 Emphysema, unspecified; Z79.83 Long term (current) use of bisphosphonates; F17.200 Nicotine dependence, unspecified, uncomplicated; F29 Unspecified psychosis not due to a substance or known physiological condition; Y84.8 Other medical procedures as the cause of abnormal reaction of the patient, or of later complication, without mention of misadventure at the time of the procedure; Y72.8 Miscellaneous otorhinolaryngological devices associated with adverse incidents, not elsewhere classified; Y92.230 Patient room in hospital as the place of occurrence of the external cause; Z20.822 Contact with and (suspected) exposure to COVID-19; R91.8 Other nonspecific abnormal finding of lung field
CPT/HCPCS: 36410; 36415; 36600; 71045-TC; 71250-TC; 71260-TC; 77012-TC; 80048-TC; 80053-TC; 80076-TC; 82140-TC; 82378; 82728-TC; 82784; 82803-TC; 83540-TC; 83735-TC; 84100-TC; 84155; 84165; 84443-TC; 85025-TC; 85610-TC; 85730-TC; 86225; 86235; 86300; 86334; 86431-TC; 87081-TC; 88305-TC; 88333-TC; 88341; 88342; 92526; 92611-TC; A6253; A6403; C1750; C9803; G0378; J2060; J2250; J2310; J2405; J3010; J3490; J7030; J7050; Q0163; Q9967